=== PATIENT | female | born 1990 | race African-American/Black ===

== ENCOUNTER 2020-09-16 06:46 | Emergency (ER) | payer MEDICAID, OTHER ==
[~2020-09-16] VITALS: Ht 170.2 cm; Wt 145.0 kg
[2020-09-16 06:49] VITALS: BP 145/79
[2020-09-16 07:20] LABS: CLARITY URINE CLEAR (CLEAR); COLOR URINE YELLOW (YELLOW); KETONES URINE TRACE (NEGATIVE); LEUKOCYTE ESTERASE URINE TRACE (NEGATIVE); NITRITE URINE NEGATIVE (NEGATIVE); OCCULT BLOOD URINE TRACE (NEGATIVE); PROTEIN URINE TRACE (NEGATIVE); SPECIFIC GRAVITY URINE 1.031 (1.005-1.030)
[2020-09-16] MEDS ORDERED: DIPH25CA83 PO (07:46)
== END 2020-09-16 07:57 | disposition home or self-care (01) ==
LOC: ER 07:12
DX: Z00.00 Encounter for general adult medical examination without abnormal findings (principal); R30.0 Dysuria; E11.9 Type 2 diabetes mellitus without complications; Z91.010 Allergy to peanuts; Z91.018 Allergy to other foods
CPT/HCPCS: 81003; 81025; 82962; 99283

== ENCOUNTER 2021-03-25 13:06 | Inpatient (IN) | payer MEDICAID ==
[~2021-03-25] VITALS: Ht 170.2 cm; Wt 128.4 kg
[~2021-03-25 13:06] MED LIST: DIPH25CA83 PO
[2021-03-25 15:28] LABS: CLARITY URINE CLOUDY (CLEAR); COLOR URINE YELLOW (YELLOW); KETONES URINE TRACE (NEGATIVE); LEUKOCYTE ESTERASE URINE 2+ (NEGATIVE); NITRITE URINE NEGATIVE (NEGATIVE); OCCULT BLOOD URINE 3+ (NEGATIVE); PH URINE 5.5 (4.5-8.0); PROTEIN URINE TRACE (NEGATIVE); SPECIFIC GRAVITY URINE 1.025 (1.005-1.030)
[2021-03-25 16:31] LABS: BASOPHILS % 0.2 % (0.0-2.0); EOSINOPHILS % 1.2 % (0.0-5.0); HEMATOCRIT. 34.5 % (36.0-48.0); HEMOGLOBIN. 11.9 g/dL (12.0-16.0); LYMPHOCYTES % 30.3 % (20.0-50.0); MEAN CORPUSCULAR HEMOGLOBIN 33.4 pg (28.0-32.0); MEAN CORPUSCULAR VOLUME 96.5 fL (81.0-99.0); MEAN PLATELET VOLUME 8.3 fl (7.4-10.4); MONOCYTES % 5.1 % (2.0-8.0); NEUTROPHILS % 63.2 % (40.0-76.0); PLATELET 271 x1000/uL (130-400); RED BLOOD CELL COUNT 3.57 mill/uL (4.2-5.4); RED CELL DISTRIBUTION WIDTH 13.5 % (11.6-14.6)
[2021-03-25 16:37] LABS: CHLORIDE 104 mEq/L (98-107)
[2021-03-25 17:00] LABS: B-HCG QUANTITATIVE 24249 mIU/mL (<3)
[2021-03-25] MEDS ORDERED: ROCURONIUM BROMIDE 10MG/ML VIAL 5ML IV ONE (19:23)
[2021-03-25] MEDS ORDERED: PROPOFOL 200MG/20ML VIAL IV ONE (19:24)
[2021-03-25] MEDS ORDERED: DEXAMETHASONE 4MG/ML 1ML VIAL ONE (19:25)
[2021-03-25] MEDS ORDERED: MEPERIDINE HCL/PF 25MG/ML CPJ IV PRN (20:15)
[2021-03-25] MEDS ORDERED: ONDANSETRON HCL 4MG/2ML INJ IV PRN (20:15)
[2021-03-25] MEDS ORDERED: HYDROMORPHONE HCL/PF 2MG/ML CPJ IV PRN (20:15)
[2021-03-25] MEDS ORDERED: LABETALOL 5MG/ML SYR 20 MG/4 ML SYRINGE IV PRN (20:15)
[2021-03-25] MEDS ORDERED: GLYCOPYRROLATE 0.2 MG/ML 2ML VIAL ONE (20:22)
[2021-03-25] MEDS ORDERED: KETOROLAC 30MG/ML VIAL IV NR (20:45)
[2021-03-25] MEDS ORDERED: KETOROLAC 30MG/ML VIAL ONE (20:49)
[2021-03-25] MEDS ORDERED: LORAZEPAM 2MG/ML CPJ IV PRN (21:00)
[2021-03-25] MEDS ORDERED: NALOXONE HCL 0.4MG/ML VIAL IV PRN (21:00)
[2021-03-26] MEDS: DIVALPROEX SODIUM 500MG DR TABLET PO SCH ×3 (00:02→19:07)
[2021-03-26 00:10] VITALS: BP 90/42
[2021-03-26] MEDS ORDERED: OLAN10TA3 MT (00:32)
[2021-03-26] MEDS ORDERED: DIVA500T3 MT (00:32)
[2021-03-26] MEDS: IBUPROFEN 800MG TABLET PO PRN ×2 (01:54→09:30)
[2021-03-26] MEDS: MORPHINE SULFATE 4 MG/ML CPJ (NOT FOR IM USE) IV PRN (02:09)
[2021-03-26] MEDS ORDERED: *PATIENT'S OWN MEDICATION STORAGE XX SCH (02:15)
[2021-03-26 04:00] VITALS: BP 116/74
[2021-03-26 06:28] LABS: HEMATOCRIT. 32.6 % (36.0-48.0); HEMOGLOBIN. 11.1 g/dL (12.0-16.0); MEAN CORPUSCULAR HEMOGLOBIN 32.8 pg (28.0-32.0); MEAN CORPUSCULAR VOLUME 96.6 fL (81.0-99.0); MEAN PLATELET VOLUME 8.3 fl (7.4-10.4); PLATELET 267 x1000/uL (130-400); RED BLOOD CELL COUNT 3.37 mill/uL (4.2-5.4); RED CELL DISTRIBUTION WIDTH 13.6 % (11.6-14.6)
[2021-03-26 06:37] LABS: CHLORIDE 105 mEq/L (98-107)
[2021-03-26 08:00] VITALS: BP 102/53
[2021-03-26] MEDS ORDERED: ALBUTEROL 6.7GM HFA INHALER ORI PRN (08:00)
[2021-03-26] MEDS ORDERED: ALBUTEROL (0.083%) 2.5MG/3ML NEB HHN PRN (08:15)
[2021-03-26] MEDS ORDERED: OLANZAPINE 10MG TABLET PO SCH (09:00)
[2021-03-26] MEDS: MORPHINE SULFATE 2 MG/ML CPJ (NOT FOR IM USE) IV PRN ×2 (09:02→17:22)
[2021-03-26] MEDS: OLANZAPINE 10MG TABLET PO SCH (09:02)
[2021-03-26] MEDS ORDERED: INFLUENZA VACCINE 05/PF 0.5 ML SYRINGE IM ONE (10:00)
[2021-03-26 12:00] VITALS: BP 115/54
[2021-03-26 12:54] LABS: PLATELET ESTIMATE NORMAL
[2021-03-26 16:00] VITALS: BP 120/54
[2021-03-26 20:00] VITALS: BP 105/39
[2021-03-27] VITALS: BP 91/47
[2021-03-27] MEDS: MORPHINE SULFATE 4 MG/ML CPJ (NOT FOR IM USE) IV PRN (03:39)
[2021-03-27 03:42] VITALS: BP 103/47
[2021-03-27] MEDS: DIVALPROEX SODIUM 500MG DR TABLET PO SCH (05:19)
[2021-03-27 08:00] VITALS: BP 106/60
[2021-03-27] MEDS: MORPHINE SULFATE 2 MG/ML CPJ (NOT FOR IM USE) IV PRN (08:54)
[2021-03-27] MEDS: OLANZAPINE 10MG TABLET PO SCH (08:55)
[2021-03-27 12:00] VITALS: BP 100/51
[2021-03-27] MEDS ORDERED: IBUP-2030 PO (12:31)
[2021-03-27] MEDS ORDERED: MULT-1146 MT (12:31)
[2021-03-27 13:25] VITALS: BP 100/51
== END 2021-03-27 13:49 | disposition home or self-care (01) | DRG 547 ==
LOC: ER 13:06 → 6WST 17:57 → EDBEDREQ 19:23 → ENRESERV 23:34 → CANBEDREQ 23:36 → ENRESERV 23:36
PROVIDERS: ADMIT Obstetrics & Gynecology; ATTEND Obstetrics & Gynecology
PROC: 0UB50ZZ Excision of Right Fallopian Tube, Open Approach (ICD-10-PCS; principal; 2021-03-25)
DX: O00.101 Right tubal pregnancy without intrauterine pregnancy (principal); E66.01 Morbid (severe) obesity due to excess calories; Z20.822 Contact with and (suspected) exposure to COVID-19; O99.331 Smoking (tobacco) complicating pregnancy, first trimester; O99.511 Diseases of the respiratory system complicating pregnancy, first trimester; J45.909 Unspecified asthma, uncomplicated; O99.211 Obesity complicating pregnancy, first trimester; F17.210 Nicotine dependence, cigarettes, uncomplicated; Z83.3 Family history of diabetes mellitus; Z91.010 Allergy to peanuts; Z91.014 Allergy to mammalian meats; Z91.018 Allergy to other foods
CPT/HCPCS: 36415; 76801; 80048; 80053; 81003; 84702; 85025; 87426; 88302; 90686; 99285; J1100; J1170; J1885; J2060; J2270; J2405; J2704; J3490

== ENCOUNTER 2021-07-10 19:03 | Emergency (ER) | payer MEDICAID, OTHER ==
[~2021-07-10] VITALS: Ht 175.3 cm; Wt 117.6 kg
[~2021-07-10 19:03] MED LIST changes: -DIPH25CA83 PO; +DIVA500T3 MT; +IBUP-2030 PO; +MULT-1146 MT; +OLAN10TA3 MT
[2021-07-11 04:36] LABS: BASOPHILS % 0.3 % (0.0-2.0); EOSINOPHILS % 0.8 % (0.0-5.0); HEMATOCRIT. 34.9 % (36.0-48.0); HEMOGLOBIN. 11.9 g/dL (12.0-16.0); LYMPHOCYTES % 30.2 % (20.0-50.0); MEAN CORPUSCULAR HEMOGLOBIN 32.4 pg (28.0-32.0); MEAN CORPUSCULAR VOLUME 94.8 fL (81.0-99.0); MEAN PLATELET VOLUME 7.7 fl (7.4-10.4); MONOCYTES % 7.5 % (2.0-8.0); NEUTROPHILS % 61.2 % (40.0-76.0); PLATELET 298 x1000/uL (130-400); RED BLOOD CELL COUNT 3.69 mill/uL (4.2-5.4); RED CELL DISTRIBUTION WIDTH 14.7 % (11.6-14.6)
[2021-07-11 04:42] LABS: CHLORIDE 109 mEq/L (98-107)
[2021-07-11 04:48] LABS: ETHANOL BLOOD < 10 mg/dL
[2021-07-11] MEDS: DIVALPROEX SODIUM 250MG DR TABLET PO SCH ×2 (10:26→21:45)
[2021-07-11] MEDS: OLANZAPINE 5MG TABLET PO SCH ×2 (10:26→17:44)
[2021-07-11 19:02] LABS: *AMPHETAMINES SCREEN URINE NEGATIVE (NEGATIVE); *BARBITURATES SCREEN URINE NEGATIVE (NEGATIVE); *BENZODIAZEPINES SCREEN URINE NEGATIVE (NEGATIVE); *COCAINE SCREEN URINE NEGATIVE (NEGATIVE); METHADONE URINE SCREEN NEGATIVE (NEGATIVE); OPIATES URINE SCREEN NEGATIVE (NEGATIVE)
[2021-07-11 19:03] LABS: PHENCYCLIDINE URINE SCREEN NEGATIVE (NEGATIVE)
[2021-07-11 19:04] LABS: CANNABINOID URINE SCREEN PRESUMTIVE POSITIVE (NEGATIVE)
[2021-07-11 19:28] LABS: CLARITY URINE CLEAR (CLEAR); COLOR URINE YELLOW (YELLOW); PROTEIN URINE NEGATIVE (NEGATIVE); SPECIFIC GRAVITY URINE 1.031 (1.005-1.030)
[2021-07-11 19:29] LABS: KETONES URINE TRACE (NEGATIVE); LEUKOCYTE ESTERASE URINE NEGATIVE (NEGATIVE); NITRITE URINE NEGATIVE (NEGATIVE); OCCULT BLOOD URINE NEGATIVE (NEGATIVE)
[2021-07-12] MEDS: DIVALPROEX SODIUM 250MG DR TABLET PO SCH ×2 (09:00→22:39)
[2021-07-12] MEDS: OLANZAPINE 5MG TABLET PO SCH ×2 (09:00→17:31)
[2021-07-12] MEDS ORDERED: HYDROCODONE/ACETAMINOPHEN 5/325MG TABLET PO ONE (14:30)
[2021-07-12] MEDS ORDERED: ACETAMINOPHEN 325MG TABLET PO STA (19:12)
[2021-07-12] MEDS ORDERED: LORAZEPAM 1MG TABLET PO ONE (21:45)
[2021-07-13 07:50] VITALS: BP 100/53
[2021-07-14 04:11] LABS: NEISSERIA GONORRHOEAE NAA Negative (Negative)
== END 2021-07-13 12:25 | disposition home or self-care (01) ==
LOC: ER 19:03
DX: R45.851 Suicidal ideations (principal); J45.909 Unspecified asthma, uncomplicated; F12.90 Cannabis use, unspecified, uncomplicated; F31.9 Bipolar disorder, unspecified; F20.9 Schizophrenia, unspecified; Z98.51 Tubal ligation status; Z91.010 Allergy to peanuts; Z91.013 Allergy to seafood; Z91.018 Allergy to other foods; Z20.822 Contact with and (suspected) exposure to COVID-19
CPT/HCPCS: 36415; 87426; 87635; 99283

== ENCOUNTER 2021-08-07 21:23 | Emergency (ER) | payer OTHER ==
[~2021-08-07] VITALS: Ht 175.3 cm; Wt 113.2 kg
[2021-08-07 21:26] VITALS: BP 121/69
[2021-08-07] MEDS ORDERED: OLAN10TA3 MT (22:07)
[2021-08-07] MEDS ORDERED: DIVA500T3 MT (22:07)
[2021-08-07] MEDS ORDERED: OLANZAPINE 10MG TABLET PO SCH (22:45)
== END 2021-08-07 22:57 | disposition home or self-care (01) ==
LOC: ER 21:23
DX: Z76.0 Encounter for issue of repeat prescription (principal); J45.909 Unspecified asthma, uncomplicated; F31.9 Bipolar disorder, unspecified; J44.9 Chronic obstructive pulmonary disease, unspecified; F20.9 Schizophrenia, unspecified; Z98.51 Tubal ligation status
CPT/HCPCS: 99282; 99283

== ENCOUNTER 2021-08-07 22:57 | Emergency (ER) | payer OTHER ==
[~2021-08-07] VITALS: Ht 175.3 cm; Wt 114.0 kg
[2021-08-08 00:34] LABS: BASOPHILS % 0.4 % (0.0-2.0); EOSINOPHILS % 0.6 % (0.0-5.0); HEMATOCRIT. 36.1 % (36.0-48.0); LYMPHOCYTES % 40.3 % (20.0-50.0); MEAN CORPUSCULAR HEMOGLOBIN 31.7 pg (28.0-32.0); MEAN CORPUSCULAR VOLUME 95.4 fL (81.0-99.0); MONOCYTES % 4.7 % (2.0-8.0); PLATELET 365 x1000/uL (130-400); RED BLOOD CELL COUNT 3.79 mill/uL (4.2-5.4); RED CELL DISTRIBUTION WIDTH 14.3 % (11.6-14.6)
[2021-08-08 00:40] LABS: CHLORIDE 108 mEq/L (98-107)
[2021-08-08 00:42] LABS: HCG SCREEN NEGATIVE
[2021-08-08 00:44] LABS: ETHANOL BLOOD < 10 mg/dL
[2021-08-08 02:24] VITALS: BP 140/66
[2021-08-09] MEDS ORDERED: CEPH500T MT (02:54)
== END 2021-08-08 02:26 | disposition home or self-care (01) ==
LOC: ER 22:57
DX: F20.9 Schizophrenia, unspecified (principal); R45.851 Suicidal ideations; F41.9 Anxiety disorder, unspecified; J44.9 Chronic obstructive pulmonary disease, unspecified; Z20.822 Contact with and (suspected) exposure to COVID-19; Z98.51 Tubal ligation status; Z91.010 Allergy to peanuts; Z91.013 Allergy to seafood; Z91.018 Allergy to other foods
CPT/HCPCS: 36415; 80053; 80307; 80320; 80329; 84703; 85025; 87426; 99283; G0480

== ENCOUNTER 2021-08-09 00:05 | Emergency (ER) | payer OTHER ==
[~2021-08-09] VITALS: Ht 175.3 cm; Wt 114.0 kg
[2021-08-09] MEDS ORDERED: ACETAMINOPHEN 325MG TABLET PO PRN (00:45)
[2021-08-09 00:56] LABS: BASOPHILS % 0.2 % (0.0-2.0); EOSINOPHILS % 0.3 % (0.0-5.0); HEMATOCRIT. 33.2 % (36.0-48.0); HEMOGLOBIN. 11.4 g/dL (12.0-16.0); LYMPHOCYTES % 31.3 % (20.0-50.0); MEAN CORPUSCULAR HEMOGLOBIN 32.7 pg (28.0-32.0); MEAN CORPUSCULAR VOLUME 94.8 fL (81.0-99.0); MEAN PLATELET VOLUME 7.7 fl (7.4-10.4); MONOCYTES % 4.9 % (2.0-8.0); NEUTROPHILS % 63.3 % (40.0-76.0); PLATELET 337 x1000/uL (130-400); RED CELL DISTRIBUTION WIDTH 14.4 % (11.6-14.6)
[2021-08-09 01:04] LABS: CHLORIDE 106 mEq/L (98-107)
[2021-08-09 01:14] LABS: B-HCG QUANTITATIVE < 1 mIU/mL (<3)
[2021-08-09 01:54] LABS: CLARITY URINE CLOUDY (CLEAR); COLOR URINE DARK YELLOW (YELLOW); KETONES URINE TRACE (NEGATIVE); LEUKOCYTE ESTERASE URINE 1+ (NEGATIVE); NITRITE URINE NEGATIVE (NEGATIVE); OCCULT BLOOD URINE 2+ (NEGATIVE); PH URINE 5.5 (4.5-8.0); PROTEIN URINE 2+ (NEGATIVE); SPECIFIC GRAVITY URINE 1.032 (1.005-1.030)
[2021-08-09] MEDS ORDERED: CEPH500T MT (02:54)
[2021-08-09 05:00] VITALS: BP 112/86
== END 2021-08-09 05:05 | disposition home or self-care (01) ==
LOC: ER 00:05
DX: R51.9 Headache, unspecified (principal); J45.909 Unspecified asthma, uncomplicated; Z91.018 Allergy to other foods; Z91.010 Allergy to peanuts; Z79.899 Other long term (current) drug therapy; Z86.59 Personal history of other mental and behavioral disorders
CPT/HCPCS: 36415; 70486; 76830; 76856; 80053; 81003; 81025; 84702; 85025; 86850; 86900; 99284

== ENCOUNTER 2021-08-13 19:01 | Emergency (ER) | payer OTHER ==
[~2021-08-13] VITALS: Ht 175.3 cm; Wt 113.0 kg
[~2021-08-13 19:01] MED LIST changes: +CEPH500T MT
[2021-08-13 19:06] VITALS: BP 133/74
[2021-08-13] MEDS ORDERED: TOPUD PO (19:36)
[2021-08-13] MEDS ORDERED: ACETAMINOPHEN 325MG TABLET PO ONE (19:45)
== END 2021-08-13 20:43 | disposition home or self-care (01) ==
LOC: ER 19:01
DX: L84 Corns and callosities (principal); E11.9 Type 2 diabetes mellitus without complications; J45.909 Unspecified asthma, uncomplicated; F20.9 Schizophrenia, unspecified; Z91.010 Allergy to peanuts; Z91.013 Allergy to seafood; Z91.014 Allergy to mammalian meats; Z91.018 Allergy to other foods
CPT/HCPCS: 99282

== ENCOUNTER 2021-08-14 02:15 | Emergency (ER) | payer OTHER ==
[~2021-08-14] VITALS: Ht 175.3 cm; Wt 113.0 kg
[~2021-08-14 02:15] MED LIST changes: +TOPUD PO
[2021-08-14 03:58] LABS: CHLORIDE 105 mEq/L (98-107)
[2021-08-14 04:02] LABS: ETHANOL BLOOD < 10 mg/dL
[2021-08-14 04:04] LABS: BASOPHILS % 0.1 % (0.0-2.0); EOSINOPHILS % 1.5 % (0.0-5.0); HEMATOCRIT. 38.7 % (36.0-48.0); HEMOGLOBIN. 12.9 g/dL (12.0-16.0); LYMPHOCYTES % 48.8 % (20.0-50.0); MEAN CORPUSCULAR VOLUME 96.1 fL (81.0-99.0); MONOCYTES % 5.9 % (2.0-8.0); NEUTROPHILS % 43.7 % (40.0-76.0); PLATELET 329 x1000/uL (130-400); RED BLOOD CELL COUNT 4.03 mill/uL (4.2-5.4)
[2021-08-14 05:21] LABS: HCG SCREEN NEGATIVE
[2021-08-14 12:22] LABS: CLARITY URINE CLEAR (CLEAR); COLOR URINE DARK YELLOW (YELLOW); KETONES URINE NEGATIVE (NEGATIVE); LEUKOCYTE ESTERASE URINE NEGATIVE (NEGATIVE); NITRITE URINE NEGATIVE (NEGATIVE); OCCULT BLOOD URINE NEGATIVE (NEGATIVE); PROTEIN URINE TRACE (NEGATIVE); SPECIFIC GRAVITY URINE 1.036 (1.005-1.030)
[2021-08-14 12:32] LABS: *BARBITURATES SCREEN URINE NEGATIVE (NEGATIVE); *BENZODIAZEPINES SCREEN URINE NEGATIVE (NEGATIVE)
[2021-08-14 12:33] LABS: *COCAINE SCREEN URINE NEGATIVE (NEGATIVE); METHADONE URINE SCREEN NEGATIVE (NEGATIVE); OPIATES URINE SCREEN NEGATIVE (NEGATIVE); PHENCYCLIDINE URINE SCREEN NEGATIVE (NEGATIVE)
[2021-08-14 12:57] LABS: *AMPHETAMINES SCREEN URINE PRESUMTIVE POSITIVE (NEGATIVE); CANNABINOID URINE SCREEN PRESUMTIVE POSITIVE (NEGATIVE)
[2021-08-14] MEDS: OLANZAPINE 10MG TABLET PO SCH (21:20)
[2021-08-14] MEDS: DIVALPROEX SODIUM 500MG DR TABLET PO SCH (22:40)
[2021-08-15] MEDS: DIVALPROEX SODIUM 500MG DR TABLET PO SCH ×2 (09:58→20:10)
[2021-08-15] MEDS: OLANZAPINE 10MG TABLET PO SCH (20:10)
[2021-08-16] MEDS: DIVALPROEX SODIUM 500MG DR TABLET PO SCH ×2 (09:03→20:57)
[2021-08-16] MEDS: OLANZAPINE 10MG TABLET PO SCH (21:31)
[2021-08-17] MEDS ORDERED: DIVALPROEX SODIUM 500MG DR TABLET PO SCH (09:30)
[2021-08-17 10:45] VITALS: BP 125/81
[2021-08-17] MEDS ORDERED: OLANZAPINE 10MG TABLET PO SCH (21:00)
== END 2021-08-17 10:49 | disposition home or self-care (01) ==
LOC: ER 02:15
DX: R44.0 Auditory hallucinations (principal); R45.851 Suicidal ideations; F31.9 Bipolar disorder, unspecified; F19.10 Other psychoactive substance abuse, uncomplicated; Z20.822 Contact with and (suspected) exposure to COVID-19
CPT/HCPCS: 36415; 80053; 80305; 80307; 80320; 80329; 81003; 84703; 85025; 99285; C9803; U0003; U0005; G0480

== ENCOUNTER 2021-09-01 19:14 | Emergency (ER) | payer OTHER | END 2021-09-01 19:50 | disposition left against medical advice (07) | LOC: ER 19:14 | DX: Z53.21 Procedure and treatment not carried out due to patient leaving prior to being seen by health care provider (principal) ==

== ENCOUNTER 2022-11-29 19:52 | Emergency (ER) | payer OTHER | END 2022-11-29 20:34 | disposition left against medical advice (07) | LOC: ER 19:52 | DX: Z53.21 Procedure and treatment not carried out due to patient leaving prior to being seen by health care provider (principal) | CPT/HCPCS: 99281 ==

== ENCOUNTER 2022-11-30 23:45 | Emergency (ER) | payer MEDICAID, OTHER ==
[~2022-11-30] VITALS: Ht 172.7 cm; Wt 120.0 kg
[2022-12-01 00:44] VITALS: BP 105/52
[2022-12-01 01:13] LABS: BASOPHILS % 0.2 % (0.0-2.0); EOSINOPHILS % 2.8 % (0.0-5.0); HEMATOCRIT. 32.2 % (36.0-48.0); HEMOGLOBIN. 10.9 g/dL (12.0-16.0); LYMPHOCYTES % 38.6 % (20.0-50.0); MEAN CORPUSCULAR HEMOGLOBIN 33.3 pg (28.0-32.0); MEAN PLATELET VOLUME 7.5 fl (7.4-10.4); MONOCYTES % 4.8 % (2.0-8.0); NEUTROPHILS % 53.6 % (40.0-76.0); PLATELET 304 x1000/uL (130-400); RED BLOOD CELL COUNT 3.29 mill/uL (4.2-5.4); RED CELL DISTRIBUTION WIDTH 14.1 % (11.6-14.6)
[2022-12-01 01:23] LABS: CHLORIDE 110 mEq/L (98-107)
[2022-12-01 06:44] LABS: HCG SCREEN NEGATIVE
== END 2022-12-01 06:21 | disposition left against medical advice (07) ==
LOC: ER 12-01 00:31
DX: Z53.21 Procedure and treatment not carried out due to patient leaving prior to being seen by health care provider (principal)
CPT/HCPCS: 36415; 80053; 84703; 85025; 99281

== ENCOUNTER 2023-01-06 04:45 | Emergency (ER) | payer MEDICAID ==
[2023-01-06 05:01] VITALS: PULSE 104
== END 2023-01-06 06:00 | disposition left against medical advice (07) ==
LOC: ER 04:45
DX: Z53.21 Procedure and treatment not carried out due to patient leaving prior to being seen by health care provider (principal)

== ENCOUNTER 2023-01-17 22:18 | Emergency (ER) | payer MEDICAID, OTHER ==
[~2023-01-17] VITALS: Ht 175.3 cm; Wt 113.0 kg
[2023-01-17 23:28] VITALS: BP 114/75; PULSE 109; RESP 16; TEMP 98.2; O2SAT 99
[2023-01-18 01:53] LABS: CLARITY URINE CLOUDY (CLEAR); COLOR URINE YELLOW (YELLOW); KETONES URINE TRACE (NEGATIVE); LEUKOCYTE ESTERASE URINE 2+ (NEGATIVE); NITRITE URINE NEGATIVE (NEGATIVE); OCCULT BLOOD URINE 1+ (NEGATIVE); PH URINE 5.5 (4.5-8.0); PROTEIN URINE TRACE (NEGATIVE); SPECIFIC GRAVITY URINE 1.029 (1.005-1.030)
[2023-01-18 03:18] LABS: BASOPHILS % 0.1 % (0.0-2.0); EOSINOPHILS % 1.6 % (0.0-5.0); HEMATOCRIT. 33.2 % (36.0-48.0); HEMOGLOBIN. 11.3 g/dL (12.0-16.0); LYMPHOCYTES % 33.6 % (20.0-50.0); MEAN CORPUSCULAR HEMOGLOBIN 32.4 pg (28.0-32.0); MEAN CORPUSCULAR VOLUME 95.2 fL (81.0-99.0); MEAN PLATELET VOLUME 7.5 fl (7.4-10.4); MONOCYTES % 9.8 % (2.0-8.0); NEUTROPHILS % 54.9 % (40.0-76.0); PLATELET 279 x1000/uL (130-400); RED BLOOD CELL COUNT 3.49 mill/uL (4.2-5.4); RED CELL DISTRIBUTION WIDTH 14.1 % (11.6-14.6)
[2023-01-18 03:23] LABS: CHLORIDE 104 mEq/L (98-107)
[2023-01-18 03:31] LABS: ETHANOL BLOOD < 10 mg/dL (-10)
[2023-01-18] MEDS ORDERED: LORAZEPAM 1MG TABLET PO ONE (03:45)
[2023-01-18] MEDS ORDERED: POTASSIUM CHLORIDE 20MEQ TABLET SR PO NR (04:15)
[2023-01-18 04:42] LABS: HCG SCREEN NEGATIVE
[2023-01-18 09:11] LABS: *BARBITURATES SCREEN URINE NEGATIVE (NEGATIVE); *BENZODIAZEPINES SCREEN URINE NEGATIVE (NEGATIVE); *COCAINE SCREEN URINE NEGATIVE (NEGATIVE); METHADONE URINE SCREEN NEGATIVE (NEGATIVE); OPIATES URINE SCREEN NEGATIVE (NEGATIVE); PHENCYCLIDINE URINE SCREEN NEGATIVE (NEGATIVE)
[2023-01-18 09:37] LABS: *AMPHETAMINES SCREEN URINE PRESUMTIVE POSITIVE (NEGATIVE)
[2023-01-18 09:38] LABS: CANNABINOID URINE SCREEN PRESUMTIVE POSITIVE (NEGATIVE)
== END 2023-01-18 10:29 | disposition home or self-care (01) ==
LOC: ER 22:18
DX: R45.851 Suicidal ideations (principal); J45.909 Unspecified asthma, uncomplicated; F15.10 Other stimulant abuse, uncomplicated; Z91.041 Radiographic dye allergy status; Z91.018 Allergy to other foods; Z91.010 Allergy to peanuts; Z91.013 Allergy to seafood; Z79.899 Other long term (current) drug therapy; Z98.890 Other specified postprocedural states
CPT/HCPCS: 36415; 80053; 80305; 80320; 81003; 81025; 84703; 85025; 99283; G0480

== ENCOUNTER 2023-01-29 17:16 | Emergency (ER) | payer MEDICAID ==
[~2023-01-29] VITALS: Ht 172.7 cm; Wt 100.0 kg
[2023-01-29 17:34] VITALS: BP 111/75; PULSE 107; RESP 20; TEMP 98.6; O2SAT 100
== END 2023-01-29 21:07 | disposition left against medical advice (07) ==
LOC: ER 17:16
DX: Z53.21 Procedure and treatment not carried out due to patient leaving prior to being seen by health care provider (principal)
CPT/HCPCS: 99281

== ENCOUNTER 2023-04-06 14:12 | Emergency (ER) | payer MEDICAID ==
[~2023-04-06] VITALS: Ht 175.3 cm; Wt 112.0 kg
[2023-04-06 14:16] VITALS: BP 144/113; RESP 16; TEMP 98.8; O2SAT 99
[2023-04-06 14:19] VITALS: PULSE 101
[2023-04-06] MEDS ORDERED: NYST15PO4 TP (15:04)
== END 2023-04-06 15:40 | disposition home or self-care (01) ==
LOC: ER 14:57
DX: B37.0 Candidal stomatitis (principal); F15.10 Other stimulant abuse, uncomplicated; J45.909 Unspecified asthma, uncomplicated; Z91.014 Allergy to mammalian meats; Z91.018 Allergy to other foods; Z91.010 Allergy to peanuts; Z91.013 Allergy to seafood; Z79.899 Other long term (current) drug therapy
CPT/HCPCS: 99281

== ENCOUNTER 2023-09-13 06:48 | Emergency (ER) | payer MEDICAID ==
[~2023-09-13] VITALS: Ht 170.2 cm; Wt 84.0 kg
[~2023-09-13 06:48] MED LIST changes: +NYST15PO4 TP
[2023-09-13 06:53] VITALS: O2SAT 99
[2023-09-13] MEDS: SODIUM CHLORIDE 0.9% 1,000 ML IV ONE (07:32)
[2023-09-13 08:00] LABS: BASOPHILS % 0.2 % (0.0-2.0); DIFFERENTIAL COMMENT 0; EOSINOPHILS % 1.1 % (0.0-5.0); HEMATOCRIT. 26.4 % (36.0-48.0); HEMOGLOBIN. 8.5 g/dL (12.0-16.0); LYMPHOCYTES % 25.2 % (20.0-50.0); MEAN CORPUSCULAR HEMOGLOBIN 32.7 pg (28.0-32.0); MEAN CORPUSCULAR HGB CONC 32.2 g/dL (31.0-37.0); MEAN CORPUSCULAR VOLUME 101.7 fL (81.0-99.0); MEAN PLATELET VOLUME 7.2 fl (7.4-10.4); MONOCYTES % 6.9 % (2.0-8.0); NEUTROPHILS % 66.6 % (40.0-76.0); PLATELET 193 x1000/uL (130-400); RED CELL DISTRIBUTION WIDTH 14.6 % (11.6-14.6); WHITE BLOOD COUNT 5.9 x1000/uL (4.5-11.0)
[2023-09-13 08:20] LABS: ALANINE AMINOTRANSFERASE 16 IU/L (10-49); ALBUMIN 4.1 g/dL (3.2-4.8); ASPARTATE AMINOTRANSFERASE 27 IU/L (<34); BILIRUBIN TOTAL 0.3 mg/dL (0.1-1.0); CALCIUM 8.3 mg/dL (8.7-10.4); CARBON DIOXIDE 22 mEq/L (21-32); CHLORIDE 109 mEq/L (98-107); GLUCOSE 91 mg/dL (70-105); POTASSIUM 3.7 mEq/L (3.5-5.1); PROTEIN TOTAL 7.2 g/dL (6.0-8.3); SODIUM 138 mEq/L (136-145); UREA NITROGEN BLOOD 14 mg/dL (9-23)
[2023-09-13 08:22] LABS: TROPONIN I HIGH SENSITIVITY < 4 ng/L (3.0-34)
[2023-09-13 08:59] LABS: BETA HYDROXYBUTYRATE 1.3 mMol/L (0.0-0.3)
[2023-09-13 09:05] LABS: BG BASE EXCESS -2.6 mmol/L (-2.0-2.0); BG CARBOXYHEMOGLOBIN 4.6 % (0.5-1.5); BG DEOXYHEMOGLOBIN 2.6 % (0.0-5.0); BG FRACTION INSPIRED OXYGEN 21; BG HCO3 ACT 23.3 mmol/L (22.0-26.0); BG METHEMOGLOBIN 0.2 % (0.0-1.5); BG OXYGEN SATURATION 97.3 % (92.0-98.5); BG OXYHEMOGLOBIN 92.6 % (94.0-97.0); BG PCO2 44.4 mmHg (35.0-45.0); BG PH 7.337 (7.350-7.450); BG PO2 107.8 mmHg (75.0-100.0); BG SAMPLE SITE RIGHT BRACHIAL; BG TOTAL HEMOGLOBIN 11.1 g/dL (12.0-18.0); BG VENT MODE ROOM AIR
[2023-09-13] MEDS: LORAZEPAM 2MG/ML INJ IM ONE (10:15)
[2023-09-13] MEDS: OLANZAPINE 10 MG/VIAL IM ONE (10:15)
[2023-09-13 11:26] LABS: CLARITY URINE CLOUDY (CLEAR); COLOR URINE YELLOW (YELLOW); GLUCOSE URINE NEGATIVE (NEGATIVE); KETONES URINE TRACE (NEGATIVE); LEUKOCYTE ESTERASE URINE NEGATIVE (NEGATIVE); NITRITE URINE NEGATIVE (NEGATIVE); OCCULT BLOOD URINE NEGATIVE (NEGATIVE); PH URINE 5.5 (4.5-8.0); PROTEIN URINE NEGATIVE (NEGATIVE); SPECIFIC GRAVITY URINE 1.027 (1.005-1.030)
[2023-09-13 11:50] LABS: SQUAMOUS EPITHELIAL CELL URINE 1+ /lpf (RARE/1+)
[2023-09-13 11:52] LABS: RBC URINE 0-2 /hpf (0-2)
[2023-09-13 11:54] LABS: BACTERIA URINE TRACE; MUCUS URINE 3+ /lpf (< = 2+)
[2023-09-13 13:10] LABS: *AMPHETAMINES SCREEN URINE PRESUMPTIVE POSITIVE (NEGATIVE); *BARBITURATES SCREEN URINE NEGATIVE (NEGATIVE); *BENZODIAZEPINES SCREEN URINE NEGATIVE (NEGATIVE); *COCAINE SCREEN URINE NEGATIVE (NEGATIVE); CANNABINOID URINE SCREEN PRESUMPTIVE POSITIVE (NEGATIVE); ECSTASY MDMA SCREEN URINE CONF.TEST INDICATED (NEGATIVE); METHADONE URINE SCREEN Neg (NEGATIVE); OPIATES URINE SCREEN NEGATIVE (NEGATIVE); PHENCYCLIDINE URINE SCREEN NEGATIVE (NEGATIVE)
[2023-09-13] MEDS: METFORMIN HCL 500MG TABLET PO SCH (17:00)
[2023-09-13 19:06] VITALS: BP 118/51; PULSE 81; RESP 16; TEMP 97.9
[2023-09-13] MEDS ORDERED: NITROFURANTOIN 100MG M/M CAPSULE PO SCH (21:00)
== END 2023-09-13 19:15 ==
LOC: ER 06:56
DX: R45.851 Suicidal ideations (principal); J45.909 Unspecified asthma, uncomplicated; F15.90 Other stimulant use, unspecified, uncomplicated; F19.90 Other psychoactive substance use, unspecified, uncomplicated; Z91.013 Allergy to seafood; Z91.010 Allergy to peanuts; Z88.8 Allergy status to other drugs, medicaments and biological substances; Z91.018 Allergy to other foods; Z90.89 Acquired absence of other organs; Z20.822 Contact with and (suspected) exposure to COVID-19
CPT/HCPCS: 80053; 80305; 81003; 81025; 82010; 80320; 82962; 83880; 85025; 84484; 36415; 71045; 82805; 82375; 93005; 96360; 96372; 99285; 87426; 36600; J3490; J2060; J7030; Z7610 ×2; G0480

== ENCOUNTER 2023-12-31 18:45 | Emergency (ER) | payer MEDICAID ==
[~2023-12-31] VITALS: Ht 162.6 cm; Wt 80.0 kg
[2023-12-31 19:47] LABS: BASOPHILS % 0.4 % (0.0-2.0); EOSINOPHILS % 1.6 % (0.0-5.0); HEMATOCRIT. 34.1 % (36.0-48.0); HEMOGLOBIN. 11.5 g/dL (12.0-16.0); LYMPHOCYTES % 28.3 % (20.0-50.0); MEAN CORPUSCULAR HEMOGLOBIN 33.2 pg (28.0-32.0); MEAN CORPUSCULAR HGB CONC 33.7 g/dL (31.0-37.0); MEAN CORPUSCULAR VOLUME 98.4 fL (81.0-99.0); MEAN PLATELET VOLUME 7.7 fl (7.4-10.4); MONOCYTES % 5.4 % (2.0-8.0); NEUTROPHILS % 64.3 % (40.0-76.0); PLATELET 250 x1000/uL (130-400); RED BLOOD CELL COUNT 3.47 mill/uL (4.2-5.4); RED CELL DISTRIBUTION WIDTH 13.6 % (11.6-14.6); WHITE BLOOD COUNT 7.6 x1000/uL (4.5-11.0)
[2023-12-31 19:54] LABS: CHLORIDE 110 mEq/L (98-107); POTASSIUM 3.8 mEq/L (3.5-5.1); SODIUM 142 mEq/L (136-145)
[2023-12-31 19:55] LABS: CARBON DIOXIDE 24 mEq/L (21-32)
[2023-12-31 20:00] LABS: GLUCOSE 87 mg/dL (70-105); UREA NITROGEN BLOOD 19 mg/dL (9-23)
[2023-12-31 20:02] LABS: ACETAMINOPHEN < 2 ug/mL (10-30)
[2023-12-31] MEDS: DIPHENHYDRAMINE 50MG/ML VIAL IM ONE (20:25)
[2023-12-31 20:26] VITALS: O2SAT 98
[2023-12-31] MEDS: MIDAZOLAM HCL 2 MG/2 ML VIAL IM ONE (20:26)
[2023-12-31] MEDS: HALOPERIDOL LACTATE 5MG/ML VIAL IM ONE (20:31)
[2023-12-31] MEDS: LORAZEPAM 1MG TABLET PO ONE (20:32)
[2023-12-31 20:33] LABS: ETHANOL BLOOD < 10 mg/dL (<10)
[2024-01-01 00:16] LABS: HCG SCREEN NEGATIVE
[2024-01-01] MEDS: ACETAMINOPHEN 500MG TABLET PO NR (07:30)
[2024-01-01 08:59] LABS: CLARITY URINE CLEAR (CLEAR); COLOR URINE YELLOW (YELLOW); GLUCOSE URINE NEGATIVE (NEGATIVE); KETONES URINE NEGATIVE (NEGATIVE); LEUKOCYTE ESTERASE URINE NEGATIVE (NEGATIVE); NITRITE URINE NEGATIVE (NEGATIVE); OCCULT BLOOD URINE NEGATIVE (NEGATIVE); PH URINE 5.5 (4.5-8.0); PROTEIN URINE NEGATIVE (NEGATIVE); SPECIFIC GRAVITY URINE 1.034 (1.005-1.030)
[2024-01-01 09:26] LABS: *AMPHETAMINES SCREEN URINE PRESUMPTIVE POSITIVE (NEGATIVE); *BARBITURATES SCREEN URINE NEGATIVE (NEGATIVE); *BENZODIAZEPINES SCREEN URINE PRESUMPTIVE POSITIVE (NEGATIVE); *COCAINE SCREEN URINE PRESUMPTIVE POSITIVE (NEGATIVE); CANNABINOID URINE SCREEN PRESUMPTIVE POSITIVE (NEGATIVE); ECSTASY MDMA SCREEN URINE CONF.TEST INDICATED (NEGATIVE); METHADONE URINE SCREEN NEGATIVE (NEGATIVE); OPIATES URINE SCREEN NEGATIVE (NEGATIVE); PHENCYCLIDINE URINE SCREEN NEGATIVE (NEGATIVE)
[2024-01-01] MEDS: HALOPERIDOL LACTATE 5MG/ML VIAL IM NR (10:00)
[2024-01-01] MEDS: LORAZEPAM 2MG/ML INJ IM NR (11:03)
[2024-01-01] MEDS: DIPHENHYDRAMINE 50MG/ML VIAL IV NR (11:03)
[2024-01-01] MEDS ORDERED: DIVALPROEX SODIUM 250MG ER TABLET PO SCH (21:00)
[2024-01-01] MEDS ORDERED: OLANZAPINE 10MG TABLET PO SCH (21:00)
[2024-01-01 21:01] VITALS: BP 104/40; PULSE 88; RESP 16; TEMP 98.5
[2024-01-02] MEDS ORDERED: OLANZAPINE 10MG TABLET PO SCH (21:00)
== END 2024-01-01 22:53 | disposition short-term general hospital (02) ==
LOC: ER 18:45
DX: R45.851 Suicidal ideations (principal); J45.909 Unspecified asthma, uncomplicated; E11.9 Type 2 diabetes mellitus without complications; Z91.041 Radiographic dye allergy status; Z91.010 Allergy to peanuts; Z91.013 Allergy to seafood; Z79.899 Other long term (current) drug therapy; Z86.59 Personal history of other mental and behavioral disorders
CPT/HCPCS: 80048; 80307; 80329; 80320; 84703; 85025; 36415; 96372 ×2; 99285; 80305; 81003; 96374; J1200 ×2; J2250; J1630; J2060; Z7610 ×2; G0480

== ENCOUNTER 2024-01-16 21:27 | Emergency (ER) | payer MEDICAID ==
[~2024-01-16] VITALS: Ht 172.7 cm; Wt 105.0 kg
[2024-01-16 21:33] VITALS: O2SAT 99
[2024-01-16] MEDS ORDERED: DIPHENHYDRAMINE 50MG CAPSULE PO ONE (23:45)
[2024-01-17 00:10] VITALS: BP 128/77; PULSE 82; RESP 17; TEMP 97.9
[2024-01-17] MEDS: DIPHENHYDRAMINE 25MG CAPSULE PO NR (00:11)
== END 2024-01-17 04:55 | disposition left against medical advice (07) ==
LOC: ER 21:27
DX: Z04.6 Encounter for general psychiatric examination, requested by authority (principal); E11.9 Type 2 diabetes mellitus without complications; J45.909 Unspecified asthma, uncomplicated; Z91.014 Allergy to mammalian meats; Z91.018 Allergy to other foods; Z91.010 Allergy to peanuts; Z91.013 Allergy to seafood; Z86.59 Personal history of other mental and behavioral disorders
CPT/HCPCS: 99282; Z7610; Q0163

== ENCOUNTER 2024-01-18 18:47 | Emergency (ER) | payer MEDICAID ==
[~2024-01-18] VITALS: Ht 172.7 cm; Wt 80.0 kg
[2024-01-18 18:49] VITALS: O2SAT 99
[2024-01-18] MEDS ORDERED: LORAZEPAM 0.5MG TABLET PO ONE (19:00)
[2024-01-18 20:07] LABS: BASOPHILS % 0.3 % (0.0-2.0); EOSINOPHILS % 0.8 % (0.0-5.0); HEMATOCRIT. 33.9 % (36.0-48.0); HEMOGLOBIN. 11.4 g/dL (12.0-16.0); LYMPHOCYTES % 24.3 % (20.0-50.0); MEAN CORPUSCULAR HGB CONC 33.7 g/dL (31.0-37.0); MEAN PLATELET VOLUME 7.7 fl (7.4-10.4); MONOCYTES % 7.4 % (2.0-8.0); NEUTROPHILS % 67.2 % (40.0-76.0); PLATELET 318 x1000/uL (130-400); RED BLOOD CELL COUNT 3.46 mill/uL (4.2-5.4); RED CELL DISTRIBUTION WIDTH 13.2 % (11.6-14.6); WHITE BLOOD COUNT 7.8 x1000/uL (4.5-11.0)
[2024-01-18 20:12] LABS: CHLORIDE 106 mEq/L (98-107); SODIUM 139 mEq/L (136-145)
[2024-01-18 20:13] LABS: CALCIUM 9.3 mg/dL (8.7-10.4); CARBON DIOXIDE 25 mEq/L (21-32)
[2024-01-18 20:18] LABS: CREATININE 1.2 mg/dL (0.6-1.0); GLUCOSE 102 mg/dL (70-105); UREA NITROGEN BLOOD 17 mg/dL (9-23)
[2024-01-18 20:20] LABS: ACETAMINOPHEN < 2 ug/mL (10-30)
[2024-01-18 20:27] LABS: ETHANOL BLOOD < 10 mg/dL (<10)
[2024-01-18 21:04] LABS: CLARITY URINE CLOUDY (CLEAR); COLOR URINE DARK YELLOW (YELLOW); GLUCOSE URINE NEGATIVE (NEGATIVE); KETONES URINE NEGATIVE (NEGATIVE); LEUKOCYTE ESTERASE URINE NEGATIVE (NEGATIVE); NITRITE URINE NEGATIVE (NEGATIVE); OCCULT BLOOD URINE NEGATIVE (NEGATIVE); PH URINE 5.5 (4.5-8.0); PROTEIN URINE 2+ (NEGATIVE); SPECIFIC GRAVITY URINE 1.034 (1.005-1.030)
[2024-01-18 21:14] LABS: *AMPHETAMINES SCREEN URINE PRESUMPTIVE POSITIVE (NEGATIVE); *BARBITURATES SCREEN URINE NEGATIVE (NEGATIVE); *BENZODIAZEPINES SCREEN URINE NEGATIVE (NEGATIVE); *COCAINE SCREEN URINE NEGATIVE (NEGATIVE); METHADONE URINE SCREEN NEGATIVE (NEGATIVE); OPIATES URINE SCREEN NEGATIVE (NEGATIVE)
[2024-01-18 21:15] LABS: CANNABINOID URINE SCREEN PRESUMPTIVE POSITIVE (NEGATIVE); ECSTASY MDMA SCREEN URINE CONF.TEST INDICATED (NEGATIVE); PHENCYCLIDINE URINE SCREEN NEGATIVE (NEGATIVE)
[2024-01-18] MEDS: LORAZEPAM 0.5MG TABLET PO NR (21:15)
[2024-01-18 21:29] LABS: BACTERIA URINE 2+; RBC URINE 0-2 /hpf (0-2); SQUAMOUS EPITHELIAL CELL URINE 2+ /lpf (RARE/1+); WBC URINE 0-2 /hpf (0-2)
[2024-01-19] MEDS: LORAZEPAM 2MG/ML INJ IM NR (07:45)
[2024-01-19] MEDS: HALOPERIDOL LACTATE 5MG/ML VIAL IM NR (08:41)
[2024-01-19] MEDS: DIPHENHYDRAMINE 50MG/ML VIAL IM ONE (08:56)
[2024-01-19] MEDS: QUETIAPINE FUMARATE 50MG TABLET PO SCH (18:31)
[2024-01-19] MEDS: TRAZODONE HCL 50MG TABLET PO STA (18:31)
[2024-01-19] MEDS: OLANZAPINE 5MG TABLET ODT PO SCH (21:00)
[2024-01-20] MEDS: DIPHENHYDRAMINE 50MG/ML VIAL IM ONE ×2 (08:45→15:15)
[2024-01-20] MEDS: HALOPERIDOL LACTATE 5MG/ML VIAL IM ONE ×2 (08:45→15:15)
[2024-01-20] MEDS: LORAZEPAM 2MG/ML INJ IM ONE ×3 (08:45→15:15)
[2024-01-20] MEDS: OLANZAPINE 10 MG/VIAL IM ONE (13:30)
[2024-01-20 13:49] VITALS: BP 112/62; PULSE 79; RESP 18; TEMP 36.78072; O2SAT 99
== END 2024-01-20 17:51 ==
LOC: ER 18:47
DX: R45.850 Homicidal ideations (principal); E11.9 Type 2 diabetes mellitus without complications; J45.909 Unspecified asthma, uncomplicated; Z20.822 Contact with and (suspected) exposure to COVID-19; Z91.014 Allergy to mammalian meats; Z91.018 Allergy to other foods; Z91.010 Allergy to peanuts; Z91.013 Allergy to seafood; Z86.59 Personal history of other mental and behavioral disorders
CPT/HCPCS: 80305; 80048; 81003; 80307; 80329; 80320; 85025; 36415; 99291; 87426; 96372 ×2; Z7610 ×2; J1200 ×2; J2060 ×2; J3490; J1630; 99285; G0480

== ENCOUNTER 2024-02-01 01:38 | Emergency (ER) | payer MEDICAID ==
[~2024-02-01] VITALS: Ht 170.2 cm; Wt 73.0 kg
[2024-02-01 01:42] VITALS: O2SAT 100
[2024-02-01] MEDS: OLANZAPINE 10 MG/VIAL IM STA (02:10)
[2024-02-01 02:47] LABS: BASOPHILS % 0.2 % (0.0-2.0); EOSINOPHILS % 0.4 % (0.0-5.0); HEMATOCRIT. 32.7 % (36.0-48.0); HEMOGLOBIN. 11.2 g/dL (12.0-16.0); LYMPHOCYTES % 32.2 % (20.0-50.0); MEAN CORPUSCULAR HEMOGLOBIN 33.2 pg (28.0-32.0); MEAN CORPUSCULAR HGB CONC 34.2 g/dL (31.0-37.0); MEAN CORPUSCULAR VOLUME 97.3 fL (81.0-99.0); MEAN PLATELET VOLUME 8.1 fl (7.4-10.4); MONOCYTES % 6.7 % (2.0-8.0); NEUTROPHILS % 60.5 % (40.0-76.0); PLATELET 247 x1000/uL (130-400); RED BLOOD CELL COUNT 3.36 mill/uL (4.2-5.4); RED CELL DISTRIBUTION WIDTH 13.4 % (11.6-14.6); WHITE BLOOD COUNT 6.3 x1000/uL (4.5-11.0)
[2024-02-01 02:55] LABS: CHLORIDE 106 mEq/L (98-107); POTASSIUM 3.3 mEq/L (3.5-5.1); SODIUM 137 mEq/L (136-145)
[2024-02-01 02:56] LABS: CARBON DIOXIDE 27 mEq/L (21-32)
[2024-02-01 02:57] LABS: CALCIUM 9.5 mg/dL (8.7-10.4)
[2024-02-01 03:01] LABS: CREATININE 1.1 mg/dL (0.6-1.0); GLUCOSE 100 mg/dL (70-105); UREA NITROGEN BLOOD 12 mg/dL (9-23)
[2024-02-01 03:02] LABS: HCG SCREEN NEGATIVE
[2024-02-01 03:03] LABS: ACETAMINOPHEN < 2 ug/mL (10-30)
[2024-02-01 03:13] LABS: ETHANOL BLOOD < 10 mg/dL (<10)
[2024-02-01 03:17] LABS: CLARITY URINE CLOUDY (CLEAR); COLOR URINE DARK YELLOW (YELLOW); GLUCOSE URINE NEGATIVE (NEGATIVE); KETONES URINE TRACE (NEGATIVE); LEUKOCYTE ESTERASE URINE 1+ (NEGATIVE); NITRITE URINE NEGATIVE (NEGATIVE); OCCULT BLOOD URINE NEGATIVE (NEGATIVE); PH URINE 5.5 (4.5-8.0); PROTEIN URINE 1+ (NEGATIVE); SPECIFIC GRAVITY URINE 1.031 (1.005-1.030)
[2024-02-01 04:13] LABS: *AMPHETAMINES SCREEN URINE PRESUMPTIVE POSITIVE (NEGATIVE); *BARBITURATES SCREEN URINE NEGATIVE (NEGATIVE); *BENZODIAZEPINES SCREEN URINE NEGATIVE (NEGATIVE); *COCAINE SCREEN URINE NEGATIVE (NEGATIVE)
[2024-02-01 04:14] LABS: CANNABINOID URINE SCREEN PRESUMPTIVE POSITIVE (NEGATIVE); ECSTASY MDMA SCREEN URINE CONF.TEST INDICATED (NEGATIVE); METHADONE URINE SCREEN NEGATIVE (NEGATIVE); OPIATES URINE SCREEN NEGATIVE (NEGATIVE); PHENCYCLIDINE URINE SCREEN PRESUMTIVE POSITIVE (NEGATIVE)
[2024-02-01 05:03] LABS: BACTERIA URINE 2+; RBC URINE 0-2 /hpf (0-2); SQUAMOUS EPITHELIAL CELL URINE 2+ /lpf (RARE/1+)
[2024-02-01] MEDS: CEPHALEXIN 250MG CAPSULE PO ONE (06:30)
[2024-02-01 12:03] VITALS: BP 135/15; PULSE 80; RESP 18; TEMP 98
== END 2024-02-01 12:52 | disposition home or self-care (01) ==
LOC: ER 01:51
DX: R45.851 Suicidal ideations (principal); N39.0 Urinary tract infection, site not specified; F41.9 Anxiety disorder, unspecified; J45.909 Unspecified asthma, uncomplicated; F12.90 Cannabis use, unspecified, uncomplicated; F15.90 Other stimulant use, unspecified, uncomplicated; F19.90 Other psychoactive substance use, unspecified, uncomplicated; Z91.013 Allergy to seafood; Z88.8 Allergy status to other drugs, medicaments and biological substances; Z91.018 Allergy to other foods; Z20.822 Contact with and (suspected) exposure to COVID-19
CPT/HCPCS: 80305; 80048; 81003; 80307; 80329; 80320; 84703; 85025; 36415; 93005; 96372; 99285; 87426; J3490; Z7610 ×2; A4565; G0480

== ENCOUNTER 2024-03-03 11:45 | Emergency (ER) | payer MEDICAID ==
[2024-03-03 13:07] LABS: BASOPHILS % 0.3 % (0.0-2.0); HEMATOCRIT. 30.5 % (36.0-48.0); HEMOGLOBIN. 10.2 g/dL (12.0-16.0); LYMPHOCYTES % 36.6 % (20.0-50.0); MEAN CORPUSCULAR HEMOGLOBIN 32.9 pg (28.0-32.0); MEAN CORPUSCULAR HGB CONC 33.4 g/dL (31.0-37.0); MEAN CORPUSCULAR VOLUME 98.5 fL (81.0-99.0); MEAN PLATELET VOLUME 7.9 fl (7.4-10.4); MONOCYTES % 6.9 % (2.0-8.0); NEUTROPHILS % 55.2 % (40.0-76.0); PLATELET 219 x1000/uL (130-400); RED CELL DISTRIBUTION WIDTH 13.4 % (11.6-14.6); WHITE BLOOD COUNT 6.2 x1000/uL (4.5-11.0)
[2024-03-03 13:14] LABS: CHLORIDE 108 mEq/L (98-107); POTASSIUM 3.2 mEq/L (3.5-5.1); SODIUM 138 mEq/L (136-145)
[2024-03-03 13:15] LABS: CALCIUM 8.9 mg/dL (8.7-10.4); CARBON DIOXIDE 24 mEq/L (21-32)
[2024-03-03 13:20] LABS: CREATININE 0.9 mg/dL (0.6-1.0); GLUCOSE 71 mg/dL (70-105); UREA NITROGEN BLOOD 16 mg/dL (9-23)
[2024-03-03 13:22] LABS: ACETAMINOPHEN < 2 ug/mL (10-30)
[2024-03-03 13:27] LABS: HCG SCREEN NEGATIVE
[2024-03-03 13:39] LABS: ETHANOL BLOOD < 10 mg/dL (<10)
[2024-03-03] MEDS ORDERED: HALOPERIDOL LACTATE 5MG/ML VIAL IM ONE (14:00)
[2024-03-03] MEDS: DIPHENHYDRAMINE 50MG/ML VIAL IM ONE (14:22)
[2024-03-03] MEDS: OLANZAPINE 10 MG/VIAL IM ONE (14:22)
[2024-03-03] MEDS: LORAZEPAM 2MG/ML INJ IM ONE (14:22)
[2024-03-03] MEDS: POTASSIUM CHLORIDE 20MEQ TABLET SR PO ONE (15:05)
[2024-03-03 15:20] VITALS: O2SAT 99
[2024-03-03 23:49] LABS: CLARITY URINE CLEAR (CLEAR); COLOR URINE DARK YELLOW (YELLOW); GLUCOSE URINE NEGATIVE (NEGATIVE); KETONES URINE TRACE (NEGATIVE); LEUKOCYTE ESTERASE URINE NEGATIVE (NEGATIVE); NITRITE URINE NEGATIVE (NEGATIVE); OCCULT BLOOD URINE NEGATIVE (NEGATIVE); PH URINE 5.5 (4.5-8.0); PROTEIN URINE TRACE (NEGATIVE); SPECIFIC GRAVITY URINE 1.035 (1.005-1.030); UROBILINOGEN URINE 0.2 E.U./dL (0.2-1.0)
[2024-03-03 23:59] LABS: *AMPHETAMINES SCREEN URINE PRESUMPTIVE POSITIVE (NEGATIVE); *BARBITURATES SCREEN URINE NEGATIVE (NEGATIVE); *BENZODIAZEPINES SCREEN URINE NEGATIVE (NEGATIVE); *COCAINE SCREEN URINE NEGATIVE (NEGATIVE); CANNABINOID URINE SCREEN PRESUMPTIVE POSITIVE (NEGATIVE); METHADONE URINE SCREEN NEGATIVE (NEGATIVE); OPIATES URINE SCREEN NEGATIVE (NEGATIVE); PHENCYCLIDINE URINE SCREEN NEGATIVE (NEGATIVE)
[2024-03-04] LABS: ECSTASY MDMA SCREEN URINE CONF.TEST INDICATED (NEGATIVE)
[2024-03-04 01:51] LABS: BACTERIA URINE NONE SEEN; RBC URINE 0-2 /hpf (0-2); SQUAMOUS EPITHELIAL CELL URINE FEW /lpf (RARE/1+); WBC URINE 0-2 /hpf (0-2)
[2024-03-04] MEDS ORDERED: DIPHENHYDRAMINE 50MG/ML VIAL IM PRN (08:00)
[2024-03-04] MEDS: DIVALPROEX SODIUM 500MG DR TABLET PO SCH (09:00)
[2024-03-04] MEDS: OLANZAPINE 10 MG/VIAL IM ONE (09:06)
[2024-03-04 09:32] VITALS: BP 122/72; PULSE 81; RESP 18; TEMP 36.83628; O2SAT 99
[2024-03-04] MEDS ORDERED: OLANZAPINE 10MG TABLET PO SCH (21:00)
== END 2024-03-04 12:21 | disposition home or self-care (01) ==
LOC: ER 11:45
DX: R45.1 Restlessness and agitation (principal); R45.851 Suicidal ideations; F41.9 Anxiety disorder, unspecified; J45.909 Unspecified asthma, uncomplicated; E11.9 Type 2 diabetes mellitus without complications; F12.10 Cannabis abuse, uncomplicated; F15.10 Other stimulant abuse, uncomplicated; Z79.899 Other long term (current) drug therapy; Z20.822 Contact with and (suspected) exposure to COVID-19
CPT/HCPCS: 80305; 80048; 81003; 80307; 80329; 80320; 84703; 85025; 36415; 96372; 99291; 87426; J3490; J1200; J2060; Z7610 ×5; G0480

== ENCOUNTER 2024-03-23 02:53 | Emergency (ER) | payer MEDICAID ==
[~2024-03-23] VITALS: Ht 167.6 cm; Wt 91.0 kg
[2024-03-23 03:04] VITALS: O2SAT 100
[2024-03-23 03:13] VITALS: BP 127/77; PULSE 82; TEMP 36.78072; O2SAT 100
[2024-03-23 03:45] VITALS: RESP 17
== END 2024-03-23 03:45 | disposition home or self-care (01) ==
LOC: ER 03:00
DX: Z04.6 Encounter for general psychiatric examination, requested by authority (principal); F15.10 Other stimulant abuse, uncomplicated; J45.909 Unspecified asthma, uncomplicated; I10 Essential (primary) hypertension; F41.9 Anxiety disorder, unspecified; F32.A Depression, unspecified; F12.10 Cannabis abuse, uncomplicated; Z79.899 Other long term (current) drug therapy; Z59.01 Sheltered homelessness; Z90.89 Acquired absence of other organs; Z98.890 Other specified postprocedural states; Z91.014 Allergy to mammalian meats; Z91.018 Allergy to other foods; Z91.010 Allergy to peanuts; Z88.8 Allergy status to other drugs, medicaments and biological substances; Z91.013 Allergy to seafood
CPT/HCPCS: 99281; 99284

== ENCOUNTER 2024-03-29 19:36 | Emergency (ER) | payer MEDICAID ==
[~2024-03-29] VITALS: Ht 175.3 cm; Wt 96.0 kg
[2024-03-29 19:52] VITALS: O2SAT 100
[2024-03-29 20:46] LABS: BASOPHILS % 0.2 % (0.0-2.0); DIFFERENTIAL COMMENT 0; EOSINOPHILS % 1.5 % (0.0-5.0); HEMATOCRIT. 31.4 % (36.0-48.0); HEMOGLOBIN. 10.4 g/dL (12.0-16.0); LYMPHOCYTES % 37.6 % (20.0-50.0); MEAN CORPUSCULAR HEMOGLOBIN 33.2 pg (28.0-32.0); MEAN CORPUSCULAR HGB CONC 33.2 g/dL (31.0-37.0); MEAN CORPUSCULAR VOLUME 100.1 fL (81.0-99.0); MEAN PLATELET VOLUME 7.7 fl (7.4-10.4); MONOCYTES % 5.1 % (2.0-8.0); NEUTROPHILS % 55.6 % (40.0-76.0); PLATELET 282 x1000/uL (130-400); RED BLOOD CELL COUNT 3.14 mill/uL (4.2-5.4); WHITE BLOOD COUNT 6.4 x1000/uL (4.5-11.0)
[2024-03-29 20:51] LABS: CHLORIDE 110 mEq/L (98-107); POTASSIUM 4.2 mEq/L (3.5-5.1); SODIUM 140 mEq/L (136-145)
[2024-03-29 20:52] LABS: CALCIUM 8.9 mg/dL (8.7-10.4); CARBON DIOXIDE 26 mEq/L (21-32)
[2024-03-29 20:57] LABS: GLUCOSE 102 mg/dL (70-105); UREA NITROGEN BLOOD 12 mg/dL (9-23)
[2024-03-29 20:59] LABS: ACETAMINOPHEN < 2 ug/mL (10-30); ALANINE AMINOTRANSFERASE 14 IU/L (10-49); ALBUMIN 3.9 g/dL (3.2-4.8); ASPARTATE AMINOTRANSFERASE 28 IU/L (<34)
[2024-03-29 21:00] LABS: BILIRUBIN TOTAL 0.3 mg/dL (0.1-1.0); PROTEIN TOTAL 6.4 g/dL (6.0-8.3)
[2024-03-29 21:01] LABS: CLARITY URINE CLEAR (CLEAR); COLOR URINE YELLOW (YELLOW); GLUCOSE URINE NEGATIVE (NEGATIVE); KETONES URINE TRACE (NEGATIVE); LEUKOCYTE ESTERASE URINE NEGATIVE (NEGATIVE); NITRITE URINE NEGATIVE (NEGATIVE); OCCULT BLOOD URINE NEGATIVE (NEGATIVE); PH URINE 6.5 (4.5-8.0); PROTEIN URINE NEGATIVE (NEGATIVE); SPECIFIC GRAVITY URINE 1.027 (1.005-1.030)
[2024-03-29 21:06] LABS: BILIRUBIN DIRECT < 0.1 mg/dL (<=3.0); ETHANOL BLOOD < 10 mg/dL (<10)
[2024-03-29 21:07] LABS: HCG SCREEN NEGATIVE
[2024-03-29 21:12] LABS: *AMPHETAMINES SCREEN URINE PRESUMPTIVE POSITIVE (NEGATIVE); *BARBITURATES SCREEN URINE NEGATIVE (NEGATIVE); *BENZODIAZEPINES SCREEN URINE NEGATIVE (NEGATIVE); *COCAINE SCREEN URINE NEGATIVE (NEGATIVE)
[2024-03-29 21:13] LABS: CANNABINOID URINE SCREEN PRESUMPTIVE POSITIVE (NEGATIVE); ECSTASY MDMA SCREEN URINE CONF.TEST INDICATED (NEGATIVE); METHADONE URINE SCREEN NEGATIVE (NEGATIVE); OPIATES URINE SCREEN NEGATIVE (NEGATIVE); PHENCYCLIDINE URINE SCREEN NEGATIVE (NEGATIVE)
[2024-03-29] MEDS: DIPHENHYDRAMINE 25MG CAPSULE PO ONE (21:45)
[2024-03-30] MEDS: LORAZEPAM 2MG/ML INJ IM ONE (11:29)
[2024-03-30] MEDS: DIPHENHYDRAMINE 50MG/ML VIAL IM ONE (11:29)
[2024-03-30] MEDS: VALPROIC ACID 250MG CAPSULE PO ONE (18:01)
[2024-03-30 20:30] VITALS: BP 98/59; PULSE 77; RESP 17; TEMP 36.66960; O2SAT 99
[2024-03-31] MEDS ORDERED: OLANZAPINE 5MG TABLET ODT PO SCH (09:00)
== END 2024-03-30 20:45 ==
LOC: ER 19:36
DX: R45.851 Suicidal ideations (principal); F41.9 Anxiety disorder, unspecified; J45.909 Unspecified asthma, uncomplicated; I10 Essential (primary) hypertension; F20.9 Schizophrenia, unspecified; F12.90 Cannabis use, unspecified, uncomplicated; F15.90 Other stimulant use, unspecified, uncomplicated; Z98.890 Other specified postprocedural states; Z79.899 Other long term (current) drug therapy; Z91.013 Allergy to seafood; Z91.018 Allergy to other foods; Z20.822 Contact with and (suspected) exposure to COVID-19
CPT/HCPCS: 80076; 80305; 80048; 81003; 80307; 80329; 80320; 84703; 85025; 36415; 99285; 87426; 96372; Q0163; Z7610 ×2; J1200; J2060; G0480

== ENCOUNTER 2024-04-14 13:25 | Emergency (ER) | payer MEDICAID ==
[~2024-04-14] VITALS: Ht 165.1 cm; Wt 70.0 kg
[2024-04-14 13:35] VITALS: O2SAT 100
[2024-04-14] MEDS: KETOROLAC 30MG/ML VIAL IM ONE (14:48)
[2024-04-14] MEDS ORDERED: NAPR-420 MT (15:57)
[2024-04-14] MEDS ORDERED: HALOPERIDOL LACTATE 5MG/ML VIAL IM ONE ×2 (18:15)
[2024-04-14] MEDS ORDERED: HALOPERIDOL 5MG TABLET PO ONE (18:15)
[2024-04-14] MEDS: LORAZEPAM 2MG/ML INJ IM ONE (18:20)
[2024-04-14] MEDS: DIPHENHYDRAMINE 50MG/ML VIAL IM ONE (18:20)
[2024-04-14 19:32] LABS: *AMPHETAMINES SCREEN URINE PRESUMPTIVE POSITIVE (NEGATIVE)
[2024-04-14 19:33] LABS: *BARBITURATES SCREEN URINE NEGATIVE (NEGATIVE); *BENZODIAZEPINES SCREEN URINE NEGATIVE (NEGATIVE); *COCAINE SCREEN URINE PRESUMPTIVE POSITIVE (NEGATIVE); CANNABINOID URINE SCREEN PRESUMPTIVE POSITIVE (NEGATIVE); ECSTASY MDMA SCREEN URINE CONF.TEST INDICATED (NEGATIVE); METHADONE URINE SCREEN NEGATIVE (NEGATIVE); OPIATES URINE SCREEN NEGATIVE (NEGATIVE); PHENCYCLIDINE URINE SCREEN NEGATIVE (NEGATIVE)
[2024-04-14 20:24] LABS: BASOPHILS % 0.2 % (0.0-2.0); EOSINOPHILS % 2.8 % (0.0-5.0); HEMATOCRIT. 32.8 % (36.0-48.0); HEMOGLOBIN. 11.3 g/dL (12.0-16.0); LYMPHOCYTES % 48.6 % (20.0-50.0); MEAN CORPUSCULAR HEMOGLOBIN 34.1 pg (28.0-32.0); MEAN CORPUSCULAR HGB CONC 34.6 g/dL (31.0-37.0); MEAN CORPUSCULAR VOLUME 98.6 fL (81.0-99.0); MEAN PLATELET VOLUME 7.8 fl (7.4-10.4); MONOCYTES % 7.3 % (2.0-8.0); NEUTROPHILS % 41.1 % (40.0-76.0); PLATELET 242 x1000/uL (130-400); RED BLOOD CELL COUNT 3.33 mill/uL (4.2-5.4); RED CELL DISTRIBUTION WIDTH 13.5 % (11.6-14.6); WHITE BLOOD COUNT 5.6 x1000/uL (4.5-11.0)
[2024-04-14 20:29] LABS: CHLORIDE 107 mEq/L (98-107); POTASSIUM 3.4 mEq/L (3.5-5.1); SODIUM 138 mEq/L (136-145)
[2024-04-14 20:30] LABS: CALCIUM 9.1 mg/dL (8.7-10.4); CARBON DIOXIDE 25 mEq/L (21-32)
[2024-04-14 20:36] LABS: GLUCOSE 103 mg/dL (70-105); UREA NITROGEN BLOOD 17 mg/dL (9-23)
[2024-04-14 20:37] LABS: ETHANOL BLOOD < 10 mg/dL (<10)
[2024-04-14 20:39] LABS: CLARITY URINE CLOUDY (CLEAR); COLOR URINE DARK YELLOW (YELLOW); GLUCOSE URINE NEGATIVE (NEGATIVE); KETONES URINE TRACE (NEGATIVE); LEUKOCYTE ESTERASE URINE NEGATIVE (NEGATIVE); NITRITE URINE NEGATIVE (NEGATIVE); OCCULT BLOOD URINE 3+ (NEGATIVE); PH URINE 5.5 (4.5-8.0); PROTEIN URINE 2+ (NEGATIVE); SPECIFIC GRAVITY URINE 1.039 (1.005-1.030)
[2024-04-14 21:09] LABS: HCG SCREEN NEGATIVE
[2024-04-14 21:58] LABS: BACTERIA URINE 2+; SQUAMOUS EPITHELIAL CELL URINE 2+ /lpf (RARE/1+)
[2024-04-14 21:59] LABS: MUCUS URINE 2+ /lpf (< = 2+); WBC URINE 0-2 /hpf (0-2)
[2024-04-15 14:00] VITALS: BP 133/56; PULSE 79; RESP 18; TEMP 36.66960; O2SAT 98
== END 2024-04-15 14:38 | disposition home or self-care (01) ==
LOC: ER 13:25
DX: M79.604 Pain in right leg (principal); F41.9 Anxiety disorder, unspecified; J45.909 Unspecified asthma, uncomplicated; I10 Essential (primary) hypertension; F20.9 Schizophrenia, unspecified; F32.9 Major depressive disorder, single episode, unspecified; F12.10 Cannabis abuse, uncomplicated; F15.10 Other stimulant abuse, uncomplicated; Z79.899 Other long term (current) drug therapy; Z20.822 Contact with and (suspected) exposure to COVID-19
CPT/HCPCS: 80305; 80048; 81003; 81025; 80307; 80329; 80320; 84703; 85025; 36415; 73502; 96372; 99285; 87426; J1200; J1885; J2060; Z7610; G0480

== ENCOUNTER 2024-04-16 02:15 | Emergency (ER) | payer MEDICAID ==
[~2024-04-16] VITALS: Ht 167.6 cm; Wt 80.0 kg
[~2024-04-16 02:15] MED LIST changes: +NAPR-420 MT
[2024-04-16 02:17] VITALS: O2SAT 100
[2024-04-16 03:29] LABS: CLARITY URINE CLEAR (CLEAR); COLOR URINE YELLOW (YELLOW); GLUCOSE URINE NEGATIVE (NEGATIVE); KETONES URINE NEGATIVE (NEGATIVE); LEUKOCYTE ESTERASE URINE NEGATIVE (NEGATIVE); NITRITE URINE NEGATIVE (NEGATIVE); OCCULT BLOOD URINE NEGATIVE (NEGATIVE); PROTEIN URINE NEGATIVE (NEGATIVE); SPECIFIC GRAVITY URINE 1.031 (1.005-1.030)
[2024-04-16 03:32] LABS: BASOPHILS % 0.2 % (0.0-2.0); CHLORIDE 108 mEq/L (98-107); EOSINOPHILS % 0.6 % (0.0-5.0); HEMATOCRIT. 35.5 % (36.0-48.0); HEMOGLOBIN. 11.7 g/dL (12.0-16.0); MEAN CORPUSCULAR HEMOGLOBIN 32.5 pg (28.0-32.0); MEAN CORPUSCULAR VOLUME 98.4 fL (81.0-99.0); MONOCYTES % 4.6 % (2.0-8.0); NEUTROPHILS % 63.6 % (40.0-76.0); PLATELET 283 x1000/uL (130-400); POTASSIUM 3.5 mEq/L (3.5-5.1); RED BLOOD CELL COUNT 3.61 mill/uL (4.2-5.4); SODIUM 140 mEq/L (136-145)
[2024-04-16 03:33] LABS: CALCIUM 8.9 mg/dL (8.7-10.4); CARBON DIOXIDE 25 mEq/L (21-32)
[2024-04-16 03:38] LABS: CREATININE 0.8 mg/dL (0.6-1.0); GLUCOSE 105 mg/dL (70-105); UREA NITROGEN BLOOD 14 mg/dL (9-23)
[2024-04-16 03:40] LABS: ACETAMINOPHEN < 2 ug/mL (10-30); ALANINE AMINOTRANSFERASE 8 IU/L (10-49); ALBUMIN 4.2 g/dL (3.2-4.8); ASPARTATE AMINOTRANSFERASE 27 IU/L (<34); BILIRUBIN DIRECT 0.1 mg/dL (<=3.0)
[2024-04-16 03:41] LABS: BILIRUBIN TOTAL 0.3 mg/dL (0.1-1.0); PROTEIN TOTAL 6.9 g/dL (6.0-8.3)
[2024-04-16 03:46] LABS: ETHANOL BLOOD < 10 mg/dL (<10)
[2024-04-16 03:55] LABS: *AMPHETAMINES SCREEN URINE PRESUMPTIVE POSITIVE (NEGATIVE); *BENZODIAZEPINES SCREEN URINE NEGATIVE (NEGATIVE); *COCAINE SCREEN URINE PRESUMPTIVE POSITIVE (NEGATIVE); METHADONE URINE SCREEN NEGATIVE (NEGATIVE); OPIATES URINE SCREEN NEGATIVE (NEGATIVE)
[2024-04-16 03:56] LABS: CANNABINOID URINE SCREEN PRESUMPTIVE POSITIVE (NEGATIVE); ECSTASY MDMA SCREEN URINE CONF.TEST INDICATED (NEGATIVE); PHENCYCLIDINE URINE SCREEN PRESUMTIVE POSITIVE (NEGATIVE)
[2024-04-16 04:20] LABS: HCG SCREEN NEGATIVE
[2024-04-16 05:36] LABS: *BARBITURATES SCREEN URINE NEGATIVE (NEGATIVE)
[2024-04-16] MEDS: OLANZAPINE 5MG TABLET PO SCH (12:22)
[2024-04-16] MEDS ORDERED: DIVALPROEX SODIUM 250MG DR TABLET PO SCH (21:00)
[2024-04-16 21:49] VITALS: BP 117/76; PULSE 89; RESP 16; TEMP 36.66960; O2SAT 100
== END 2024-04-16 22:00 ==
LOC: ER 02:24
DX: F29 Unspecified psychosis not due to a substance or known physiological condition (principal); F60.0 Paranoid personality disorder; F19.10 Other psychoactive substance abuse, uncomplicated; I10 Essential (primary) hypertension; J45.909 Unspecified asthma, uncomplicated; F14.10 Cocaine abuse, uncomplicated; F12.10 Cannabis abuse, uncomplicated; F32.9 Major depressive disorder, single episode, unspecified; F15.10 Other stimulant abuse, uncomplicated; Z79.899 Other long term (current) drug therapy; Z20.822 Contact with and (suspected) exposure to COVID-19
CPT/HCPCS: 80076; 80305; 80048; 81003; 80307; 80329; 80320; 84703; 85025; 36415; 99285; 87426; Z7610; G0480

== ENCOUNTER 2024-04-30 07:45 | Emergency (ER) | payer MEDICAID, OTHER ==
[~2024-04-30] VITALS: Ht 175.3 cm; Wt 97.1 kg
[2024-04-30 08:10] VITALS: O2SAT 96
[2024-04-30 09:48] LABS: BASOPHILS % 0.3 % (0.0-2.0); EOSINOPHILS % 1.9 % (0.0-5.0); HEMATOCRIT. 34.4 % (36.0-48.0); HEMOGLOBIN. 11.2 g/dL (12.0-16.0); MEAN CORPUSCULAR HEMOGLOBIN 32.5 pg (28.0-32.0); MEAN CORPUSCULAR HGB CONC 32.7 g/dL (31.0-37.0); MEAN CORPUSCULAR VOLUME 99.3 fL (81.0-99.0); MONOCYTES % 7.4 % (2.0-8.0); NEUTROPHILS % 69.4 % (40.0-76.0); PLATELET 277 x1000/uL (130-400); RED BLOOD CELL COUNT 3.46 mill/uL (4.2-5.4); RED CELL DISTRIBUTION WIDTH 14.2 % (11.6-14.6)
[2024-04-30 09:57] LABS: CHLORIDE 104 mEq/L (98-107); POTASSIUM 3.3 mEq/L (3.5-5.1); SODIUM 137 mEq/L (136-145)
[2024-04-30 09:58] LABS: CARBON DIOXIDE 26 mEq/L (21-32)
[2024-04-30 09:59] LABS: CALCIUM 9.4 mg/dL (8.7-10.4); HCG SCREEN NEGATIVE
[2024-04-30 10:03] LABS: GLUCOSE 90 mg/dL (70-105); UREA NITROGEN BLOOD 11 mg/dL (9-23)
[2024-04-30 10:18] LABS: ETHANOL BLOOD < 10 mg/dL (<10)
[2024-05-01 00:47] LABS: CLARITY URINE CLEAR (CLEAR); COLOR URINE YELLOW (YELLOW); GLUCOSE URINE NEGATIVE (NEGATIVE); KETONES URINE NEGATIVE (NEGATIVE); LEUKOCYTE ESTERASE URINE TRACE (NEGATIVE); NITRITE URINE NEGATIVE (NEGATIVE); OCCULT BLOOD URINE NEGATIVE (NEGATIVE); PROTEIN URINE NEGATIVE (NEGATIVE); SPECIFIC GRAVITY URINE 1.024 (1.005-1.030)
[2024-05-01 01:06] LABS: *AMPHETAMINES SCREEN URINE PRESUMPTIVE POSITIVE (NEGATIVE); *BARBITURATES SCREEN URINE NEGATIVE (NEGATIVE); *BENZODIAZEPINES SCREEN URINE NEGATIVE (NEGATIVE); *COCAINE SCREEN URINE PRESUMPTIVE POSITIVE (NEGATIVE); CANNABINOID URINE SCREEN PRESUMPTIVE POSITIVE (NEGATIVE); ECSTASY MDMA SCREEN URINE NEGATIVE (NEGATIVE); METHADONE URINE SCREEN NEGATIVE (NEGATIVE); OPIATES URINE SCREEN NEGATIVE (NEGATIVE); PHENCYCLIDINE URINE SCREEN NEGATIVE (NEGATIVE)
[2024-05-01] MEDS ORDERED: TRAZODONE HCL 50MG TABLET PO ONE (01:15)
[2024-05-01 01:32] LABS: WBC URINE 0-2 /hpf (0-2)
[2024-05-01 01:33] LABS: BACTERIA URINE TRACE; RBC URINE NONE SEEN /hpf (0-2); SQUAMOUS EPITHELIAL CELL URINE FEW /lpf (RARE/1+)
[2024-05-01] MEDS: TRAZODONE HCL 50MG TABLET PO NR (01:38)
[2024-05-01 05:33] LABS: ACETAMINOPHEN < 2 ug/mL (10-30); ALANINE AMINOTRANSFERASE 15 IU/L (10-49); ALBUMIN 3.9 g/dL (3.2-4.8); ASPARTATE AMINOTRANSFERASE 19 IU/L (<34); BILIRUBIN DIRECT 0.1 mg/dL (<=3.0); BILIRUBIN TOTAL 0.4 mg/dL (0.1-1.0); PROTEIN TOTAL 6.3 g/dL (6.0-8.3)
[2024-05-01] MEDS: ACETAMINOPHEN 325MG TABLET PO ONE (13:09)
[2024-05-01 15:01] VITALS: BP 114/68; PULSE 78; RESP 16; TEMP 36.72516; O2SAT 99
== END 2024-05-01 15:02 | disposition home or self-care (01) ==
LOC: ER 08:07
DX: R45.851 Suicidal ideations (principal); F14.10 Cocaine abuse, uncomplicated; F12.10 Cannabis abuse, uncomplicated; F15.10 Other stimulant abuse, uncomplicated; J45.909 Unspecified asthma, uncomplicated; F32.A Depression, unspecified; I10 Essential (primary) hypertension; Z79.899 Other long term (current) drug therapy; Z91.014 Allergy to mammalian meats; Z91.010 Allergy to peanuts; Z91.013 Allergy to seafood; Z88.8 Allergy status to other drugs, medicaments and biological substances; Z20.822 Contact with and (suspected) exposure to COVID-19
CPT/HCPCS: 80048; 80320; 84703; 85025; 36415 ×2; 99285; 80076; 80305; 81003; 80307; 80329; 87426; Z7610 ×3; G0480

== ENCOUNTER 2024-05-01 16:27 | Emergency (ER) | payer OTHER ==
[~2024-05-01] VITALS: Ht 170.2 cm; Wt 100.0 kg
[2024-05-01 16:41] VITALS: O2SAT 100
[2024-05-01 17:25] LABS: BASOPHILS % 0.2 % (0.0-2.0); HEMATOCRIT. 34.5 % (36.0-48.0); HEMOGLOBIN. 11.7 g/dL (12.0-16.0); MEAN CORPUSCULAR HEMOGLOBIN 33.7 pg (28.0-32.0); MEAN CORPUSCULAR HGB CONC 33.8 g/dL (31.0-37.0); MEAN CORPUSCULAR VOLUME 99.6 fL (81.0-99.0); MEAN PLATELET VOLUME 7.7 fl (7.4-10.4); MONOCYTES % 7.3 % (2.0-8.0); NEUTROPHILS % 74.5 % (40.0-76.0); PLATELET 255 x1000/uL (130-400); RED BLOOD CELL COUNT 3.46 mill/uL (4.2-5.4); RED CELL DISTRIBUTION WIDTH 14.3 % (11.6-14.6); WHITE BLOOD COUNT 8.3 x1000/uL (4.5-11.0)
[2024-05-01 17:30] LABS: CHLORIDE 106 mEq/L (98-107); POTASSIUM 3.9 mEq/L (3.5-5.1); SODIUM 137 mEq/L (136-145)
[2024-05-01 17:31] LABS: CARBON DIOXIDE 28 mEq/L (21-32)
[2024-05-01 17:32] LABS: CALCIUM 9.1 mg/dL (8.7-10.4)
[2024-05-01 17:36] LABS: CREATININE 0.9 mg/dL (0.6-1.0)
[2024-05-01 17:37] LABS: GLUCOSE 93 mg/dL (70-105); UREA NITROGEN BLOOD 12 mg/dL (9-23)
[2024-05-01 17:38] LABS: ETHANOL BLOOD < 10 mg/dL (<10)
[2024-05-02 02:30] VITALS: TEMP 36.94740
[2024-05-02] MEDS: TRAZODONE HCL 50MG TABLET PO ONE (02:40)
[2024-05-02] MEDS: BENZONATATE 100MG CAPSULE PO ONE (10:35)
[2024-05-02 11:45] VITALS: BP 133/86; PULSE 87; RESP 16; O2SAT 99
== END 2024-05-02 11:54 | disposition home or self-care (01) ==
LOC: ER 16:27
DX: R45.851 Suicidal ideations (principal); I10 Essential (primary) hypertension; F20.9 Schizophrenia, unspecified; J45.909 Unspecified asthma, uncomplicated; F41.9 Anxiety disorder, unspecified; F32.9 Major depressive disorder, single episode, unspecified; Z90.89 Acquired absence of other organs; Z79.899 Other long term (current) drug therapy; Z20.822 Contact with and (suspected) exposure to COVID-19
CPT/HCPCS: 36415; 80048; 80320; 85025; 87426; 99283; G0480

== ENCOUNTER 2024-05-17 23:11 | Emergency (ER) | payer MEDICAID ==
[~2024-05-17] VITALS: Ht 172.7 cm; Wt 74.0 kg
[~2024-05-17 23:11] MED LIST changes: +NYST15PO13 TP; -NYST15PO4 TP
[2024-05-18 00:27] LABS: BASOPHILS % 0.2 % (0.0-2.0); EOSINOPHILS % 2.4 % (0.0-5.0); HEMATOCRIT. 32.8 % (36.0-48.0); HEMOGLOBIN. 11.1 g/dL (12.0-16.0); LYMPHOCYTES % 39.1 % (20.0-50.0); MEAN CORPUSCULAR HEMOGLOBIN 32.9 pg (28.0-32.0); MEAN CORPUSCULAR HGB CONC 33.8 g/dL (31.0-37.0); MEAN CORPUSCULAR VOLUME 97.3 fL (81.0-99.0); MEAN PLATELET VOLUME 7.6 fl (7.4-10.4); MONOCYTES % 7.6 % (2.0-8.0); NEUTROPHILS % 50.7 % (40.0-76.0); PLATELET 306 x1000/uL (130-400); RED BLOOD CELL COUNT 3.37 mill/uL (4.2-5.4); RED CELL DISTRIBUTION WIDTH 14.4 % (11.6-14.6); WHITE BLOOD COUNT 7.4 x1000/uL (4.5-11.0)
[2024-05-18 00:33] LABS: CHLORIDE 106 mEq/L (98-107); POTASSIUM 3.4 mEq/L (3.5-5.1); SODIUM 140 mEq/L (136-145)
[2024-05-18 00:34] LABS: CALCIUM 9.2 mg/dL (8.7-10.4); CARBON DIOXIDE 25 mEq/L (21-32)
[2024-05-18 00:39] LABS: CREATININE 0.9 mg/dL (0.6-1.0); GLUCOSE 90 mg/dL (70-105); UREA NITROGEN BLOOD 14 mg/dL (9-23)
[2024-05-18 00:41] LABS: *AMPHETAMINES SCREEN URINE PRESUMPTIVE POSITIVE (NEGATIVE)
[2024-05-18 00:41] LABS: ACETAMINOPHEN < 2 ug/mL (10-30)
[2024-05-18 00:42] LABS: *BARBITURATES SCREEN URINE NEGATIVE (NEGATIVE); *BENZODIAZEPINES SCREEN URINE NEGATIVE (NEGATIVE); *COCAINE SCREEN URINE NEGATIVE (NEGATIVE); CANNABINOID URINE SCREEN PRESUMPTIVE POSITIVE (NEGATIVE); ECSTASY MDMA SCREEN URINE CONF.TEST INDICATED (NEGATIVE); METHADONE URINE SCREEN NEGATIVE (NEGATIVE); OPIATES URINE SCREEN NEGATIVE (NEGATIVE); PHENCYCLIDINE URINE SCREEN NEGATIVE (NEGATIVE)
[2024-05-18 00:57] LABS: HCG SCREEN NEGATIVE
[2024-05-18 01:11] LABS: ETHANOL BLOOD < 10 mg/dL (<10)
[2024-05-18] MEDS: DIPHENHYDRAMINE 25MG CAPSULE PO ONE (01:14)
[2024-05-18] MEDS: TRAZODONE HCL 50MG TABLET PO SCH (01:15)
[2024-05-18] MEDS: DIVALPROEX SODIUM 250MG ER TABLET PO ONE (01:17)
[2024-05-18 04:24] LABS: CLARITY URINE CLEAR (CLEAR); COLOR URINE YELLOW (YELLOW); GLUCOSE URINE NEGATIVE (NEGATIVE); PH URINE 5.5 (4.5-8.0); PROTEIN URINE 1+ (NEGATIVE); SPECIFIC GRAVITY URINE 1.035 (1.005-1.030)
[2024-05-18 04:25] LABS: KETONES URINE NEGATIVE (NEGATIVE); LEUKOCYTE ESTERASE URINE NEGATIVE (NEGATIVE); NITRITE URINE NEGATIVE (NEGATIVE); OCCULT BLOOD URINE 3+ (NEGATIVE)
[2024-05-18 04:54] LABS: SQUAMOUS EPITHELIAL CELL URINE 1+ /lpf (RARE/1+)
[2024-05-18 04:58] LABS: RBC URINE 0-2 /hpf (0-2); WBC URINE 0-2 /hpf (0-2)
[2024-05-18 04:59] LABS: BACTERIA URINE NONE SEEN
[2024-05-18] MEDS: LORAZEPAM 1MG TABLET PO ONE (12:00)
[2024-05-18] MEDS: MIDAZOLAM HCL 2 MG/2 ML VIAL IM ONE (17:30)
[2024-05-18] MEDS: OLANZAPINE 10 MG/VIAL IM ONE (17:30)
[2024-05-18] MEDS ORDERED: TRAZODONE HCL 50MG TABLET PO SCH (21:00)
[2024-05-19] MEDS: MIDAZOLAM HCL 2 MG/2 ML VIAL IM ONE (10:57)
[2024-05-19] MEDS: LORAZEPAM 2MG/ML INJ IM ONE (14:39)
[2024-05-19] MEDS: HALOPERIDOL LACTATE 5MG/ML VIAL IM ONE (14:40)
[2024-05-19] MEDS: DIPHENHYDRAMINE 50MG/ML VIAL IM ONE (14:40)
[2024-05-19 15:45] VITALS: O2SAT 100
[2024-05-19] MEDS: DIVALPROEX SODIUM 250MG DR TABLET PO SCH (21:00)
[2024-05-19] MEDS: OLANZAPINE 5MG TABLET PO SCH (21:00)
[2024-05-19 21:30] VITALS: BP 112/72; PULSE 94; RESP 18; TEMP 36.72516; O2SAT 100
== END 2024-05-19 22:18 ==
LOC: ER 23:11
DX: R45.851 Suicidal ideations (principal); F17.200 Nicotine dependence, unspecified, uncomplicated; F12.10 Cannabis abuse, uncomplicated; F41.9 Anxiety disorder, unspecified; J45.909 Unspecified asthma, uncomplicated; I10 Essential (primary) hypertension; Z20.822 Contact with and (suspected) exposure to COVID-19; Z91.014 Allergy to mammalian meats; Z91.010 Allergy to peanuts; Z91.013 Allergy to seafood; Z88.8 Allergy status to other drugs, medicaments and biological substances; Z90.89 Acquired absence of other organs; Z79.899 Other long term (current) drug therapy; Z98.890 Other specified postprocedural states; Z86.59 Personal history of other mental and behavioral disorders
CPT/HCPCS: 80305; 80048; 81025; 80307; 80329; 80320; 84703; 80165; 85025; 36415; 99291; 87426; 96372 ×2; Q0163; Z7610 ×4; J3490; J2250 ×2; J1200; J1630; J2060; A4663; A4606; G0480

== ENCOUNTER 2024-05-28 21:30 | Emergency (ER) | payer MEDICAID ==
[~2024-05-28] VITALS: Ht 162.6 cm; Wt 91.0 kg
[2024-05-28 21:42] VITALS: BP 121/50; PULSE 101; RESP 18; O2SAT 100
== END 2024-05-29 00:59 | disposition left against medical advice (07) ==
LOC: ER 21:30
DX: R11.2 Nausea with vomiting, unspecified (principal); Z53.21 Procedure and treatment not carried out due to patient leaving prior to being seen by health care provider

== ENCOUNTER 2024-05-29 05:53 | Emergency (ER) | payer MEDICAID ==
[~2024-05-29] VITALS: Ht 165.1 cm; Wt 64.0 kg
[2024-05-29 06:15] VITALS: BP 123/59; PULSE 102; RESP 18; TEMP 99.1; O2SAT 99
== END 2024-05-29 08:49 | disposition left against medical advice (07) ==
LOC: ER 05:53
DX: M79.10 Myalgia, unspecified site (principal); F12.10 Cannabis abuse, uncomplicated; F16.10 Hallucinogen abuse, uncomplicated; F41.9 Anxiety disorder, unspecified; J45.909 Unspecified asthma, uncomplicated; Z91.014 Allergy to mammalian meats; Z91.09 Other allergy status, other than to drugs and biological substances; Z91.010 Allergy to peanuts; Z88.8 Allergy status to other drugs, medicaments and biological substances; Z91.013 Allergy to seafood; Z79.899 Other long term (current) drug therapy; Z86.59 Personal history of other mental and behavioral disorders
CPT/HCPCS: 99283

== ENCOUNTER 2024-07-11 05:37 | Emergency (ER) | payer MEDICAID, OTHER ==
[~2024-07-11] VITALS: Ht 170.2 cm; Wt 73.0 kg
[2024-07-11] MEDS ORDERED: ACETAMINOPHEN 325MG TABLET PO ONE (05:45)
[2024-07-11 05:55] VITALS: BP 112/84; PULSE 86; RESP 16; TEMP 97.7; O2SAT 97
== END 2024-07-11 06:15 | disposition home or self-care (01) ==
LOC: ER 05:52
DX: R51.9 Headache, unspecified (principal); F12.10 Cannabis abuse, uncomplicated; F16.10 Hallucinogen abuse, uncomplicated; F31.9 Bipolar disorder, unspecified; I10 Essential (primary) hypertension; F41.9 Anxiety disorder, unspecified; Z91.014 Allergy to mammalian meats; Z91.010 Allergy to peanuts; Z88.8 Allergy status to other drugs, medicaments and biological substances; Z91.013 Allergy to seafood; Z79.899 Other long term (current) drug therapy; Z86.59 Personal history of other mental and behavioral disorders; Y04.0XXA Assault by unarmed brawl or fight, initial encounter; Y93.89 Activity, other specified; Y92.89 Other specified places as the place of occurrence of the external cause; Y99.8 Other external cause status
CPT/HCPCS: 99283

== ENCOUNTER 2024-07-25 00:09 | Emergency (ER) | payer MEDICAID, OTHER ==
[~2024-07-25] VITALS: Ht 172.7 cm; Wt 93.0 kg
[2024-07-25 00:24] VITALS: O2SAT 98
[2024-07-25 01:48] LABS: CLARITY URINE CLEAR (CLEAR); COLOR URINE DARK YELLOW (YELLOW); GLUCOSE URINE NEGATIVE (NEGATIVE); KETONES URINE TRACE (NEGATIVE); LEUKOCYTE ESTERASE URINE NEGATIVE (NEGATIVE); NITRITE URINE NEGATIVE (NEGATIVE); OCCULT BLOOD URINE NEGATIVE (NEGATIVE); PROTEIN URINE TRACE (NEGATIVE); SPECIFIC GRAVITY URINE 1.032 (1.005-1.030)
[2024-07-25 01:51] LABS: *AMPHETAMINES SCREEN URINE PRESUMPTIVE POSITIVE (NEGATIVE); *BARBITURATES SCREEN URINE NEGATIVE (NEGATIVE); *BENZODIAZEPINES SCREEN URINE NEGATIVE (NEGATIVE)
[2024-07-25 01:52] LABS: *COCAINE SCREEN URINE NEGATIVE (NEGATIVE); CANNABINOID URINE SCREEN PRESUMPTIVE POSITIVE (NEGATIVE); ECSTASY MDMA SCREEN URINE CONF.TEST INDICATED (NEGATIVE); METHADONE URINE SCREEN NEGATIVE (NEGATIVE); OPIATES URINE SCREEN NEGATIVE (NEGATIVE); PHENCYCLIDINE URINE SCREEN NEGATIVE (NEGATIVE)
[2024-07-25 01:56] LABS: CHLORIDE 110 mEq/L (98-107); SODIUM 139 mEq/L (136-145)
[2024-07-25 01:57] LABS: CARBON DIOXIDE 22 mEq/L (21-32)
[2024-07-25 01:58] LABS: CALCIUM 9.1 mg/dL (8.7-10.4)
[2024-07-25 02:02] LABS: CREATININE 0.9 mg/dL (0.6-1.0); GLUCOSE 87 mg/dL (70-105)
[2024-07-25 02:03] LABS: UREA NITROGEN BLOOD 8 mg/dL (9-23)
[2024-07-25 02:04] LABS: ACETAMINOPHEN < 2 ug/mL (10-30)
[2024-07-25 02:06] LABS: HCG SCREEN NEGATIVE
[2024-07-25 02:25] LABS: BASOPHILS % 0.7 % (0.0-2.0); HEMATOCRIT. 44.4 % (36.0-48.0); HEMOGLOBIN. 14.9 g/dL (12.0-16.0); MEAN CORPUSCULAR HEMOGLOBIN 32.8 pg (28.0-32.0); MEAN CORPUSCULAR HGB CONC 33.6 g/dL (31.0-37.0); MEAN CORPUSCULAR VOLUME 97.7 fL (81.0-99.0); MEAN PLATELET VOLUME 8.5 fl (7.4-10.4); NEUTROPHILS % 31.3 % (40.0-76.0); PLATELET 203 x1000/uL (130-400); RED BLOOD CELL COUNT 4.55 mill/uL (4.2-5.4); RED CELL DISTRIBUTION WIDTH 14.3 % (11.6-14.6); WHITE BLOOD COUNT 9.5 x1000/uL (4.5-11.0)
[2024-07-25 02:27] LABS: SQUAMOUS EPITHELIAL CELL URINE 1+ /lpf (RARE/1+)
[2024-07-25 02:28] LABS: BACTERIA URINE NONE SEEN; RBC URINE 0-2 /hpf (0-2); WBC URINE 0-2 /hpf (0-2)
[2024-07-25 02:51] LABS: ETHANOL BLOOD < 10 mg/dL (<10)
[2024-07-25] MEDS: OLANZAPINE 10 MG/VIAL IM ONE (05:45)
[2024-07-25 12:54] VITALS: BP 110/67; PULSE 87; RESP 16; TEMP 36.9; O2SAT 99
== END 2024-07-25 13:54 | disposition home or self-care (01) ==
LOC: ER 00:09
DX: T43.621A Poisoning by amphetamines, accidental (unintentional), initial encounter (principal); F41.9 Anxiety disorder, unspecified; F31.9 Bipolar disorder, unspecified; F12.10 Cannabis abuse, uncomplicated; F16.20 Hallucinogen dependence, uncomplicated; Z20.822 Contact with and (suspected) exposure to COVID-19; Z88.8 Allergy status to other drugs, medicaments and biological substances; Z91.014 Allergy to mammalian meats; Z91.09 Other allergy status, other than to drugs and biological substances; Z91.010 Allergy to peanuts; Z91.013 Allergy to seafood; Z79.899 Other long term (current) drug therapy; Y92.9 Unspecified place or not applicable
CPT/HCPCS: 80305; 80048; 81003; 81025; 80307; 80329; 80320; 84703; 85025; 36415; 96372; 99285; 87426; J3490; Z7610; G0480

== ENCOUNTER 2024-07-30 22:01 | Emergency (ER) | payer MEDICAID ==
[~2024-07-30] VITALS: Ht 175.3 cm; Wt 97.0 kg
[2024-07-30 22:06] VITALS: BP 135/78; PULSE 98; RESP 18; TEMP 36.7; O2SAT 99
[2024-07-30] MEDS ORDERED: ACETAMINOPHEN 325MG TABLET PO ONE (23:00)
== END 2024-07-30 23:13 | disposition left against medical advice (07) ==
LOC: ER 22:01
DX: M79.10 Myalgia, unspecified site (principal); F31.9 Bipolar disorder, unspecified; F20.9 Schizophrenia, unspecified; Z79.899 Other long term (current) drug therapy; Z91.010 Allergy to peanuts; Z91.014 Allergy to mammalian meats; Z91.013 Allergy to seafood; Z91.018 Allergy to other foods; Z88.8 Allergy status to other drugs, medicaments and biological substances
CPT/HCPCS: 99281

== ENCOUNTER 2024-09-21 22:01 | Emergency (ER) | payer MEDICAID ==
[~2024-09-21] VITALS: Ht 172.7 cm; Wt 99.0 kg
[2024-09-21 22:14] VITALS: O2SAT 100
[2024-09-21 22:57] LABS: BASOPHILS % 0.2 % (0.0-2.0); EOSINOPHILS % 3.1 % (0.0-5.0); HEMATOCRIT. 32.9 % (36.0-48.0); HEMOGLOBIN. 10.8 g/dL (12.0-16.0); LYMPHOCYTES % 36.2 % (20.0-50.0); MEAN CORPUSCULAR HEMOGLOBIN 32.1 pg (28.0-32.0); MEAN CORPUSCULAR HGB CONC 32.9 g/dL (31.0-37.0); MEAN CORPUSCULAR VOLUME 97.5 fL (81.0-99.0); MEAN PLATELET VOLUME 7.9 fl (7.4-10.4); MONOCYTES % 7.6 % (2.0-8.0); NEUTROPHILS % 52.9 % (40.0-76.0); PLATELET 238 x1000/uL (130-400); RED BLOOD CELL COUNT 3.38 mill/uL (4.2-5.4); RED CELL DISTRIBUTION WIDTH 14.2 % (11.6-14.6); WHITE BLOOD COUNT 6.1 x1000/uL (4.5-11.0)
[2024-09-21 23:03] LABS: CHLORIDE 107 mEq/L (98-107); POTASSIUM 3.7 mEq/L (3.5-5.1); SODIUM 139 mEq/L (136-145)
[2024-09-21 23:04] LABS: CALCIUM 8.8 mg/dL (8.7-10.4); CARBON DIOXIDE 27 mEq/L (21-32)
[2024-09-21 23:09] LABS: CREATININE 0.8 mg/dL (0.6-1.0); GLUCOSE 98 mg/dL (70-105); UREA NITROGEN BLOOD 14 mg/dL (9-23)
[2024-09-21 23:11] LABS: ACETAMINOPHEN < 2 ug/mL (10-30)
[2024-09-21 23:58] LABS: CLARITY URINE CLEAR (CLEAR); COLOR URINE YELLOW (YELLOW); GLUCOSE URINE NEGATIVE (NEGATIVE); KETONES URINE NEGATIVE (NEGATIVE); LEUKOCYTE ESTERASE URINE NEGATIVE (NEGATIVE); NITRITE URINE NEGATIVE (NEGATIVE); OCCULT BLOOD URINE NEGATIVE (NEGATIVE); PH URINE 5.5 (4.5-8.0); PROTEIN URINE NEGATIVE (NEGATIVE); SPECIFIC GRAVITY URINE 1.015 (1.005-1.030); UROBILINOGEN URINE 0.2 E.U./dL (0.2-1.0)
[2024-09-22 09:22] VITALS: BP 118/68; PULSE 76; RESP 16; TEMP 36.9; O2SAT 100
== END 2024-09-22 09:24 | disposition home or self-care (01) ==
LOC: ER 22:01
DX: R45.851 Suicidal ideations (principal); I10 Essential (primary) hypertension; F25.9 Schizoaffective disorder, unspecified; F31.9 Bipolar disorder, unspecified; F41.9 Anxiety disorder, unspecified; G40.909 Epilepsy, unspecified, not intractable, without status epilepticus; J45.909 Unspecified asthma, uncomplicated; Z59.01 Sheltered homelessness
CPT/HCPCS: 36415; 80048; 80307; 80329; 81003; 85025; 99285

== ENCOUNTER 2024-09-22 19:09 | Emergency (ER) | payer MEDICAID, OTHER ==
[~2024-09-22] VITALS: Ht 172.7 cm; Wt 93.7 kg
[2024-09-22 19:20] VITALS: O2SAT 99
[2024-09-22 19:25] VITALS: BP 138/89; PULSE 85; RESP 18; TEMP 36.9; O2SAT 99
[2024-09-22 20:17] LABS: BASOPHILS % 0.2 % (0.0-2.0); EOSINOPHILS % 0.9 % (0.0-5.0); HEMATOCRIT. 34.7 % (36.0-48.0); HEMOGLOBIN. 11.3 g/dL (12.0-16.0); LYMPHOCYTES % 26.4 % (20.0-50.0); MEAN CORPUSCULAR HEMOGLOBIN 31.8 pg (28.0-32.0); MEAN CORPUSCULAR HGB CONC 32.6 g/dL (31.0-37.0); MEAN CORPUSCULAR VOLUME 97.5 fL (81.0-99.0); MEAN PLATELET VOLUME 8.1 fl (7.4-10.4); MONOCYTES % 11.8 % (2.0-8.0); NEUTROPHILS % 60.7 % (40.0-76.0); PLATELET 225 x1000/uL (130-400); RED BLOOD CELL COUNT 3.56 mill/uL (4.2-5.4); RED CELL DISTRIBUTION WIDTH 14.6 % (11.6-14.6); WHITE BLOOD COUNT 5.2 x1000/uL (4.5-11.0)
[2024-09-22 20:24] LABS: CHLORIDE 109 mEq/L (98-107); POTASSIUM 3.7 mEq/L (3.5-5.1); SODIUM 140 mEq/L (136-145)
[2024-09-22 20:25] LABS: CARBON DIOXIDE 22 mEq/L (21-32)
[2024-09-22 20:30] LABS: CREATININE 0.8 mg/dL (0.6-1.0); GLUCOSE 91 mg/dL (70-105); UREA NITROGEN BLOOD 11 mg/dL (9-23)
[2024-09-22 20:32] LABS: ETHANOL BLOOD < 10 mg/dL (<10)
== END 2024-09-22 23:43 | disposition left against medical advice (07) ==
LOC: ER 19:09
DX: R45.851 Suicidal ideations (principal); F20.9 Schizophrenia, unspecified; F31.9 Bipolar disorder, unspecified; G40.909 Epilepsy, unspecified, not intractable, without status epilepticus; I10 Essential (primary) hypertension; J45.909 Unspecified asthma, uncomplicated; F12.90 Cannabis use, unspecified, uncomplicated; F15.90 Other stimulant use, unspecified, uncomplicated; Z90.89 Acquired absence of other organs; Z79.899 Other long term (current) drug therapy; Z91.010 Allergy to peanuts; Z91.013 Allergy to seafood; Z91.018 Allergy to other foods
CPT/HCPCS: 36415; 80048; 80320; 85025; 99283; 99285; G0480

== ENCOUNTER 2024-10-03 15:40 | Emergency (ER) | payer MEDICAID ==
[~2024-10-03] VITALS: Ht 167.6 cm; Wt 91.0 kg
[2024-10-03 15:47] VITALS: O2SAT 98
[2024-10-03 15:58] VITALS: BP 113/55; PULSE 87; RESP 20; TEMP 36.8; O2SAT 96
== END 2024-10-03 19:34 ==
LOC: ER 15:40
DX: M79.605 Pain in left leg (principal); M79.604 Pain in right leg; Z53.21 Procedure and treatment not carried out due to patient leaving prior to being seen by health care provider; V49.9XXA Car occupant (driver) (passenger) injured in unspecified traffic accident, initial encounter; Y93.89 Activity, other specified; Y92.89 Other specified places as the place of occurrence of the external cause; Y99.8 Other external cause status

== ENCOUNTER 2025-03-05 21:59 | Emergency (ER) | payer MEDICAID ==
[~2025-03-05] VITALS: Ht 175.3 cm; Wt 111.0 kg
[2025-03-05 22:23] VITALS: O2SAT 100
[2025-03-06 00:15] LABS: BASOPHILS % 0.4 % (0.0-2.0); EOSINOPHILS % 1.2 % (0.0-5.0); HEMATOCRIT. 33.7 % (36.0-48.0); HEMOGLOBIN. 11.1 g/dL (12.0-16.0); LYMPHOCYTES % 38.7 % (20.0-50.0); MEAN PLATELET VOLUME 7.3 fl (7.4-10.4); MONOCYTES % 4.6 % (2.0-8.0); NEUTROPHILS % 55.1 % (40.0-76.0); PLATELET 289 x1000/uL (130-400); RED BLOOD CELL COUNT 3.49 mill/uL (4.2-5.4); RED CELL DISTRIBUTION WIDTH 14.0 % (11.6-14.6)
[2025-03-06 00:26] LABS: HCG SCREEN NEGATIVE
[2025-03-06 00:29] LABS: CREATININE 0.9 mg/dL (0.6-1.0); UREA NITROGEN BLOOD 10 mg/dL (9-23)
[2025-03-06 00:30] LABS: ETHANOL BLOOD < 10 mg/dL (<10)
[2025-03-06] MEDS: LORAZEPAM 1MG TABLET PO ONE (00:30)
[2025-03-06 00:31] LABS: ASPARTATE AMINOTRANSFERASE 19 IU/L (<34); BILIRUBIN DIRECT 0.1 mg/dL (<=3.0); BILIRUBIN TOTAL 0.4 mg/dL (0.1-1.0)
[2025-03-06 00:32] LABS: PROTEIN TOTAL 7.5 g/dL (6.0-8.3)
[2025-03-06 01:24] LABS: CLARITY URINE CLEAR (CLEAR); COLOR URINE YELLOW (YELLOW); GLUCOSE URINE NEGATIVE (NEGATIVE); KETONES URINE NEGATIVE (NEGATIVE); LEUKOCYTE ESTERASE URINE NEGATIVE (NEGATIVE); NITRITE URINE NEGATIVE (NEGATIVE); OCCULT BLOOD URINE NEGATIVE (NEGATIVE); PH URINE 5.5 (4.5-8.0); PROTEIN URINE NEGATIVE (NEGATIVE); SPECIFIC GRAVITY URINE 1.029 (1.005-1.030); UROBILINOGEN URINE 1.0 E.U./dL (0.2-1.0)
[2025-03-06 01:54] LABS: *AMPHETAMINES SCREEN URINE PRESUMPTIVE POSITIVE (NEGATIVE); *BARBITURATES SCREEN URINE NEGATIVE (NEGATIVE); *BENZODIAZEPINES SCREEN URINE NEGATIVE (NEGATIVE); *COCAINE SCREEN URINE NEGATIVE (NEGATIVE); CANNABINOID URINE SCREEN PRESUMPTIVE POSITIVE (NEGATIVE); ECSTASY MDMA SCREEN URINE CONF.TEST INDICATED (NEGATIVE); METHADONE URINE SCREEN NEGATIVE (NEGATIVE); OPIATES URINE SCREEN NEGATIVE (NEGATIVE); PHENCYCLIDINE URINE SCREEN NEGATIVE (NEGATIVE)
[2025-03-06] MEDS: DIPHENHYDRAMINE 50MG CAPSULE PO ONE (02:39)
[2025-03-06 09:02] VITALS: BP 119/89; PULSE 80; RESP 18; TEMP 36.6; O2SAT 100
== END 2025-03-06 09:25 | disposition still patient (30) ==
LOC: ER 21:59
DX: R45.851 Suicidal ideations (principal); F41.9 Anxiety disorder, unspecified; F31.9 Bipolar disorder, unspecified; F20.9 Schizophrenia, unspecified; J45.909 Unspecified asthma, uncomplicated; Z91.010 Allergy to peanuts; Z91.013 Allergy to seafood; Z20.822 Contact with and (suspected) exposure to COVID-19; Z79.899 Other long term (current) drug therapy
CPT/HCPCS: 80076; 80048; 80307; 80329; 80320; 84703; 85025; 36415 ×2; 99285; 80305; 81003; 80165; 87426; Q0163; G0480

== ENCOUNTER 2025-03-12 00:42 | Emergency (ER) | payer MEDICAID ==
[~2025-03-12] VITALS: Ht 175.3 cm; Wt 92.0 kg
[2025-03-12 00:55] VITALS: O2SAT 99
[2025-03-12 01:14] VITALS: BP 121/88; PULSE 92; RESP 18; TEMP 36.9; O2SAT 99
== END 2025-03-12 02:47 | disposition left against medical advice (07) ==
LOC: ER 00:42
DX: Z00.00 Encounter for general adult medical examination without abnormal findings (principal); Z53.21 Procedure and treatment not carried out due to patient leaving prior to being seen by health care provider

== ENCOUNTER 2025-03-31 02:47 | Emergency (ER) | payer MEDICAID ==
[~2025-03-31] VITALS: Ht 172.7 cm; Wt 104.0 kg
[2025-03-31 02:52] VITALS: O2SAT 99
[2025-03-31 03:47] LABS: BASOPHILS % 0.2 % (0.0-2.0); EOSINOPHILS % 2.7 % (0.0-5.0); HEMATOCRIT. 35.3 % (36.0-48.0); HEMOGLOBIN. 11.8 g/dL (12.0-16.0); LYMPHOCYTES % 29.0 % (20.0-50.0); MEAN PLATELET VOLUME 7.3 fl (7.4-10.4); MONOCYTES % 8.6 % (2.0-8.0); NEUTROPHILS % 59.5 % (40.0-76.0); PLATELET 372 x1000/uL (130-400); RED BLOOD CELL COUNT 3.68 mill/uL (4.2-5.4); RED CELL DISTRIBUTION WIDTH 13.8 % (11.6-14.6)
[2025-03-31 04:04] LABS: CREATININE 1.2 mg/dL (0.6-1.0); UREA NITROGEN BLOOD 21 mg/dL (9-23)
[2025-03-31 04:15] LABS: CLARITY URINE CLOUDY (CLEAR); COLOR URINE DARK YELLOW (YELLOW); GLUCOSE URINE NEGATIVE (NEGATIVE); KETONES URINE TRACE (NEGATIVE); LEUKOCYTE ESTERASE URINE NEGATIVE (NEGATIVE); NITRITE URINE NEGATIVE (NEGATIVE); OCCULT BLOOD URINE NEGATIVE (NEGATIVE); PH URINE 5.5 (4.5-8.0); PROTEIN URINE 2+ (NEGATIVE); SPECIFIC GRAVITY URINE 1.036 (1.005-1.030); UROBILINOGEN URINE 1.0 E.U./dL (0.2-1.0)
[2025-03-31 04:25] LABS: HCG SCREEN NEGATIVE
[2025-03-31 04:34] LABS: *AMPHETAMINES SCREEN URINE PRESUMPTIVE POSITIVE (NEGATIVE); *BARBITURATES SCREEN URINE NEGATIVE (NEGATIVE); *BENZODIAZEPINES SCREEN URINE PRESUMPTIVE POSITIVE (NEGATIVE); *COCAINE SCREEN URINE NEGATIVE (NEGATIVE); CANNABINOID URINE SCREEN PRESUMPTIVE POSITIVE (NEGATIVE); ECSTASY MDMA SCREEN URINE CONF.TEST INDICATED (NEGATIVE); METHADONE URINE SCREEN NEGATIVE (NEGATIVE); OPIATES URINE SCREEN NEGATIVE (NEGATIVE); PHENCYCLIDINE URINE SCREEN NEGATIVE (NEGATIVE)
[2025-03-31 04:38] LABS: SQUAMOUS EPITHELIAL CELL URINE 1+ /lpf (RARE/1+)
[2025-03-31 04:42] LABS: RBC URINE 0-2 /hpf (0-2); WBC URINE 0-2 /hpf (0-2)
[2025-03-31 04:43] LABS: BACTERIA URINE NONE SEEN
[2025-03-31 04:44] LABS: AMORPHOUS SEDIMENT URINE 1+ /lpf
[2025-03-31] MEDS: POTASSIUM CHLORIDE 20MEQ TABLET SR PO ONE (05:18)
[2025-03-31] MEDS: DIPHENHYDRAMINE 50MG/ML VIAL IM PRN (05:19)
[2025-03-31] MEDS: KETOROLAC 30MG/ML VIAL IM ONE (05:19)
[2025-03-31] MEDS: LORAZEPAM 2MG/ML UD SYRINGE IM NR (05:19)
[2025-03-31 06:54] VITALS: BP 92/50; PULSE 89; RESP 18; TEMP 36.9; O2SAT 100
== END 2025-03-31 11:50 | disposition short-term general hospital (02) ==
LOC: ER 02:47
DX: F25.9 Schizoaffective disorder, unspecified (principal); F19.10 Other psychoactive substance abuse, uncomplicated; R51.9 Headache, unspecified; E11.9 Type 2 diabetes mellitus without complications; F12.10 Cannabis abuse, uncomplicated; F17.200 Nicotine dependence, unspecified, uncomplicated; F31.9 Bipolar disorder, unspecified; F41.9 Anxiety disorder, unspecified; G40.909 Epilepsy, unspecified, not intractable, without status epilepticus; J45.909 Unspecified asthma, uncomplicated; Z91.013 Allergy to seafood; Z91.010 Allergy to peanuts; Z88.8 Allergy status to other drugs, medicaments and biological substances; Z20.822 Contact with and (suspected) exposure to COVID-19
CPT/HCPCS: 80305; 80048; 81003; 80307; 80329; 80320; 84703; 85025; 36415; 96372; 99285; 87426; J1200; J1885; J2060; Z7610; G0480

== ENCOUNTER 2025-04-14 12:32 | Emergency (ER) | payer MEDICAID ==
[~2025-04-14] VITALS: Ht 172.7 cm; Wt 102.0 kg
[2025-04-14 12:37] VITALS: O2SAT 99
[2025-04-14 13:09] LABS: BASOPHILS % 0.3 % (0.0-2.0); EOSINOPHILS % 3.2 % (0.0-5.0); HEMATOCRIT. 37.3 % (36.0-48.0); HEMOGLOBIN. 12.4 g/dL (12.0-16.0); LYMPHOCYTES % 32.0 % (20.0-50.0); MEAN PLATELET VOLUME 7.7 fl (7.4-10.4); MONOCYTES % 6.7 % (2.0-8.0); NEUTROPHILS % 57.8 % (40.0-76.0); PLATELET 273 x1000/uL (130-400); RED BLOOD CELL COUNT 3.91 mill/uL (4.2-5.4); RED CELL DISTRIBUTION WIDTH 14.5 % (11.6-14.6)
[2025-04-14 13:24] LABS: CREATININE 0.9 mg/dL (0.6-1.0); UREA NITROGEN BLOOD 8 mg/dL (9-23)
[2025-04-14 13:38] LABS: CLARITY URINE CLOUDY (CLEAR); COLOR URINE DARK YELLOW (YELLOW); GLUCOSE URINE NEGATIVE (NEGATIVE); KETONES URINE TRACE (NEGATIVE); LEUKOCYTE ESTERASE URINE 1+ (NEGATIVE); NITRITE URINE NEGATIVE (NEGATIVE); OCCULT BLOOD URINE NEGATIVE (NEGATIVE); PH URINE 6.0 (4.5-8.0); PROTEIN URINE 3+ (NEGATIVE); SPECIFIC GRAVITY URINE 1.037 (1.005-1.030); UROBILINOGEN URINE 2.0 E.U./dL (0.2-1.0)
[2025-04-14 13:55] LABS: *AMPHETAMINES SCREEN URINE PRESUMPTIVE POSITIVE (NEGATIVE); *BARBITURATES SCREEN URINE NEGATIVE (NEGATIVE); *BENZODIAZEPINES SCREEN URINE NEGATIVE (NEGATIVE); *COCAINE SCREEN URINE NEGATIVE (NEGATIVE); METHADONE URINE SCREEN NEGATIVE (NEGATIVE)
[2025-04-14 13:56] LABS: CANNABINOID URINE SCREEN PRESUMPTIVE POSITIVE (NEGATIVE); ECSTASY MDMA SCREEN URINE CONF.TEST INDICATED (NEGATIVE); OPIATES URINE SCREEN NEGATIVE (NEGATIVE); PHENCYCLIDINE URINE SCREEN NEGATIVE (NEGATIVE)
[2025-04-14 14:09] LABS: SQUAMOUS EPITHELIAL CELL URINE 3+ /lpf (RARE/1+)
[2025-04-14 14:10] LABS: BACTERIA URINE 3+; MUCUS URINE 1+ /lpf (< = 2+)
[2025-04-14 14:11] LABS: RBC URINE NONE SEEN /hpf (0-2)
[2025-04-14] MEDS: DIVALPROEX SODIUM 250MG ER TABLET PO ONE (16:49)
[2025-04-14] MEDS: IBUPROFEN 600MG TABLET PO ONE (16:49)
[2025-04-14 17:39] LABS: HCG SCREEN NEGATIVE
[2025-04-14] MEDS: LORAZEPAM 2MG/ML UD SYRINGE ONE (18:01)
[2025-04-14] MEDS: NITROFURANTOIN 100MG M/M CAPSULE PO SCH (18:02)
[2025-04-14] MEDS: DIPHENHYDRAMINE 50MG/ML VIAL IM ONE (18:02)
[2025-04-14 19:47] VITALS: BP 100/85; PULSE 100; RESP 20; TEMP 36.7; O2SAT 98
== END 2025-04-14 22:14 ==
LOC: ER 12:32
DX: F29 Unspecified psychosis not due to a substance or known physiological condition (principal); E11.9 Type 2 diabetes mellitus without complications; F20.9 Schizophrenia, unspecified; F31.9 Bipolar disorder, unspecified; J45.909 Unspecified asthma, uncomplicated; Z91.010 Allergy to peanuts; Z91.013 Allergy to seafood
CPT/HCPCS: 80305; 80048; 81003; 80307; 80329; 80320; 84703; 85025; 36415; 96372; 99285; Z7610 ×2; J1200; J2060; A4606; G0480

== ENCOUNTER 2025-04-29 19:16 | Emergency (ER) | payer MEDICAID ==
[~2025-04-29] VITALS: Ht 175.3 cm; Wt 103.0 kg
[2025-04-29 19:35] VITALS: O2SAT 100
[2025-04-29 20:20] LABS: *AMPHETAMINES SCREEN URINE PRESUMPTIVE POSITIVE (NEGATIVE); *BARBITURATES SCREEN URINE NEGATIVE (NEGATIVE); *BENZODIAZEPINES SCREEN URINE PRESUMPTIVE POSITIVE (NEGATIVE); *COCAINE SCREEN URINE NEGATIVE (NEGATIVE); CANNABINOID URINE SCREEN PRESUMPTIVE POSITIVE (NEGATIVE); METHADONE URINE SCREEN NEGATIVE (NEGATIVE); OPIATES URINE SCREEN NEGATIVE (NEGATIVE); PHENCYCLIDINE URINE SCREEN NEGATIVE (NEGATIVE)
[2025-04-29 20:21] LABS: ECSTASY MDMA SCREEN URINE CONF.TEST INDICATED (NEGATIVE)
[2025-04-29 20:39] LABS: BASOPHILS % 0.2 % (0.0-2.0); EOSINOPHILS % 5.9 % (0.0-5.0); HEMATOCRIT. 27.7 % (36.0-48.0); HEMOGLOBIN. 9.0 g/dL (12.0-16.0); LYMPHOCYTES % 30.7 % (20.0-50.0); MEAN PLATELET VOLUME 7.6 fl (7.4-10.4); MONOCYTES % 7.3 % (2.0-8.0); NEUTROPHILS % 55.9 % (40.0-76.0); PLATELET 261 x1000/uL (130-400); RED BLOOD CELL COUNT 2.82 mill/uL (4.2-5.4); RED CELL DISTRIBUTION WIDTH 14.9 % (11.6-14.6)
[2025-04-29 20:53] LABS: CREATININE 0.7 mg/dL (0.6-1.0); UREA NITROGEN BLOOD 17 mg/dL (9-23)
[2025-04-29 21:02] LABS: HCG SCREEN NEGATIVE
[2025-04-29 21:34] LABS: CLARITY URINE CLEAR (CLEAR); COLOR URINE YELLOW (YELLOW); GLUCOSE URINE NEGATIVE (NEGATIVE); KETONES URINE NEGATIVE (NEGATIVE); LEUKOCYTE ESTERASE URINE NEGATIVE (NEGATIVE); NITRITE URINE NEGATIVE (NEGATIVE); OCCULT BLOOD URINE NEGATIVE (NEGATIVE); PH URINE 5.5 (4.5-8.0); PROTEIN URINE NEGATIVE (NEGATIVE); SPECIFIC GRAVITY URINE 1.030 (1.005-1.030); UROBILINOGEN URINE 0.2 E.U./dL (0.2-1.0)
[2025-04-29] MEDS: SODIUM CHLORIDE 0.9% 1,000 ML IV ONE (21:55)
[2025-04-29 23:24] LABS: ASPARTATE AMINOTRANSFERASE 27 IU/L (<34)
[2025-04-29 23:25] LABS: BILIRUBIN DIRECT < 0.1 mg/dL (<=3.0); BILIRUBIN TOTAL 0.2 mg/dL (0.1-1.0); PROTEIN TOTAL 6.4 g/dL (6.0-8.3)
[2025-04-30 09:21] VITALS: BP 105/73; PULSE 78; RESP 18; TEMP 36.7; O2SAT 100
== END 2025-04-30 16:56 ==
LOC: ER 19:16
DX: R45.851 Suicidal ideations (principal); E11.9 Type 2 diabetes mellitus without complications; F20.9 Schizophrenia, unspecified; F31.9 Bipolar disorder, unspecified; J45.909 Unspecified asthma, uncomplicated; Z90.89 Acquired absence of other organs; Z20.822 Contact with and (suspected) exposure to COVID-19; Z59.00 Homelessness unspecified; Z79.899 Other long term (current) drug therapy; Z91.010 Allergy to peanuts; Z91.013 Allergy to seafood
CPT/HCPCS: 80076; 80305; 80048; 81003; 80307; 80329; 80320; 84703; 85025; 36415; 71045; 96360; 99285; 87426; 82962; J7030; Z7610 ×5; G0480

== ENCOUNTER 2025-05-08 01:04 | Emergency (ER) | payer MEDICAID ==
[~2025-05-08] VITALS: Ht 172.7 cm; Wt 105.0 kg
[2025-05-08 01:23] VITALS: O2SAT 98
[2025-05-08 02:16] LABS: BASOPHILS % 0.2 % (0.0-2.0); EOSINOPHILS % 1.3 % (0.0-5.0); HEMATOCRIT. 32.6 % (36.0-48.0); HEMOGLOBIN. 10.8 g/dL (12.0-16.0); LYMPHOCYTES % 28.6 % (20.0-50.0); MEAN PLATELET VOLUME 7.3 fl (7.4-10.4); MONOCYTES % 9.9 % (2.0-8.0); NEUTROPHILS % 60.0 % (40.0-76.0); PLATELET 286 x1000/uL (130-400); RED BLOOD CELL COUNT 3.45 mill/uL (4.2-5.4); RED CELL DISTRIBUTION WIDTH 14.2 % (11.6-14.6)
[2025-05-08 02:21] LABS: CLARITY URINE CLOUDY (CLEAR); COLOR URINE DARK YELLOW (YELLOW); GLUCOSE URINE NEGATIVE (NEGATIVE); KETONES URINE TRACE (NEGATIVE); LEUKOCYTE ESTERASE URINE NEGATIVE (NEGATIVE); NITRITE URINE NEGATIVE (NEGATIVE); OCCULT BLOOD URINE TRACE (NEGATIVE); PH URINE 5.0 (4.5-8.0); PROTEIN URINE 1+ (NEGATIVE); SPECIFIC GRAVITY URINE 1.037 (1.005-1.030); UROBILINOGEN URINE 1.0 E.U./dL (0.2-1.0)
[2025-05-08 02:33] LABS: CREATININE 1.0 mg/dL (0.6-1.0); HCG SCREEN NEGATIVE; UREA NITROGEN BLOOD 18 mg/dL (9-23)
[2025-05-08 02:54] LABS: *AMPHETAMINES SCREEN URINE PRESUMPTIVE POSITIVE (NEGATIVE); *BARBITURATES SCREEN URINE NEGATIVE (NEGATIVE); *BENZODIAZEPINES SCREEN URINE NEGATIVE (NEGATIVE); *COCAINE SCREEN URINE NEGATIVE (NEGATIVE); CANNABINOID URINE SCREEN PRESUMPTIVE POSITIVE (NEGATIVE); ECSTASY MDMA SCREEN URINE CONF.TEST INDICATED (NEGATIVE); METHADONE URINE SCREEN NEGATIVE (NEGATIVE); OPIATES URINE SCREEN NEGATIVE (NEGATIVE); PHENCYCLIDINE URINE SCREEN NEGATIVE (NEGATIVE)
[2025-05-08 03:42] LABS: WBC URINE 0-2 /hpf (0-2)
[2025-05-08 03:45] LABS: RBC URINE 0-2 /hpf (0-2); SQUAMOUS EPITHELIAL CELL URINE FEW /lpf (RARE/1+)
[2025-05-08 03:46] LABS: BACTERIA URINE NONE SEEN
[2025-05-08 03:47] LABS: AMORPHOUS SEDIMENT URINE 1+ /lpf
[2025-05-08 07:15] VITALS: BP 102/47; PULSE 91; RESP 18; TEMP 36.8; O2SAT 98
== END 2025-05-08 07:25 ==
LOC: ER 01:04
DX: R45.851 Suicidal ideations (principal); F12.90 Cannabis use, unspecified, uncomplicated; Z91.010 Allergy to peanuts; Z91.013 Allergy to seafood; Z20.822 Contact with and (suspected) exposure to COVID-19; Z79.899 Other long term (current) drug therapy
CPT/HCPCS: 36415; 80048; 80305; 80307; 80320; 80329; 81003; 84703; 85025; 87426; 99285; G0480

== ENCOUNTER 2025-05-14 23:21 | Emergency (ER) | payer MEDICAID ==
[~2025-05-14] VITALS: Ht 172.7 cm; Wt 89.0 kg
[2025-05-14 23:44] VITALS: O2SAT 99
[2025-05-15 02:37] LABS: BASOPHILS % 0.3 % (0.0-2.0); EOSINOPHILS % 1.1 % (0.0-5.0); HEMATOCRIT. 35.5 % (36.0-48.0); HEMOGLOBIN. 11.7 g/dL (12.0-16.0); LYMPHOCYTES % 31.3 % (20.0-50.0); MEAN PLATELET VOLUME 9.0 fl (7.4-10.4); MONOCYTES % 3.9 % (2.0-8.0); NEUTROPHILS % 63.4 % (40.0-76.0); PLATELET 244 x1000/uL (130-400); RED BLOOD CELL COUNT 3.70 mill/uL (4.2-5.4); RED CELL DISTRIBUTION WIDTH 14.5 % (11.6-14.6)
[2025-05-15 02:47] LABS: HCG SCREEN NEGATIVE
[2025-05-15 02:52] LABS: CREATININE 0.8 mg/dL (0.6-1.0); UREA NITROGEN BLOOD 12 mg/dL (9-23)
[2025-05-15 02:53] LABS: ETHANOL BLOOD < 10 mg/dL (<10)
[2025-05-15 02:54] LABS: *AMPHETAMINES SCREEN URINE PRESUMPTIVE POSITIVE (NEGATIVE); *BARBITURATES SCREEN URINE NEGATIVE (NEGATIVE); *BENZODIAZEPINES SCREEN URINE NEGATIVE (NEGATIVE)
[2025-05-15 02:55] LABS: *COCAINE SCREEN URINE PRESUMPTIVE POSITIVE (NEGATIVE); CANNABINOID URINE SCREEN PRESUMPTIVE POSITIVE (NEGATIVE); ECSTASY MDMA SCREEN URINE CONF.TEST INDICATED (NEGATIVE); METHADONE URINE SCREEN NEGATIVE (NEGATIVE); OPIATES URINE SCREEN NEGATIVE (NEGATIVE); PHENCYCLIDINE URINE SCREEN NEGATIVE (NEGATIVE)
[2025-05-15] MEDS: DIVALPROEX SODIUM 250MG DR TABLET PO SCH (22:10)
[2025-05-15] MEDS: OLANZAPINE 10MG TABLET PO SCH (22:10)
[2025-05-16 08:00] VITALS: BP 121/73; PULSE 77; RESP 18; TEMP 36.7; O2SAT 100
== END 2025-05-16 11:20 | disposition home or self-care (01) ==
LOC: ER 23:48
DX: R45.851 Suicidal ideations (principal); F41.9 Anxiety disorder, unspecified; F32.A Depression, unspecified; F25.0 Schizoaffective disorder, bipolar type; F12.90 Cannabis use, unspecified, uncomplicated; F15.90 Other stimulant use, unspecified, uncomplicated; Z79.899 Other long term (current) drug therapy; Z98.890 Other specified postprocedural states; Z20.822 Contact with and (suspected) exposure to COVID-19; Z91.010 Allergy to peanuts; Z91.013 Allergy to seafood
CPT/HCPCS: 36415; 80048; 80305; 80307; 80320; 80329; 84703; 85025; 87426; 99285; G0480

== ENCOUNTER 2025-05-29 04:41 | Emergency (ER) | payer MEDICAID ==
[~2025-05-29] VITALS: Ht 172.7 cm; Wt 112.8 kg
[2025-05-29 05:02] VITALS: O2SAT 100
[2025-05-29 05:50] LABS: BASOPHILS % 0.2 % (0.0-2.0); EOSINOPHILS % 2.0 % (0.0-5.0); HEMATOCRIT. 32.5 % (36.0-48.0); HEMOGLOBIN. 10.9 g/dL (12.0-16.0); LYMPHOCYTES % 30.1 % (20.0-50.0); MEAN PLATELET VOLUME 7.6 fl (7.4-10.4); MONOCYTES % 7.6 % (2.0-8.0); NEUTROPHILS % 60.1 % (40.0-76.0); PLATELET 310 x1000/uL (130-400); RED BLOOD CELL COUNT 3.44 mill/uL (4.2-5.4); RED CELL DISTRIBUTION WIDTH 14.5 % (11.6-14.6)
[2025-05-29 05:59] LABS: CLARITY URINE CLOUDY (CLEAR); COLOR URINE DARK YELLOW (YELLOW); GLUCOSE URINE NEGATIVE (NEGATIVE); KETONES URINE TRACE (NEGATIVE); LEUKOCYTE ESTERASE URINE 1+ (NEGATIVE); NITRITE URINE NEGATIVE (NEGATIVE); OCCULT BLOOD URINE NEGATIVE (NEGATIVE); PH URINE 6.0 (4.5-8.0); PROTEIN URINE TRACE (NEGATIVE); SPECIFIC GRAVITY URINE 1.024 (1.005-1.030); UROBILINOGEN URINE 1.0 E.U./dL (0.2-1.0)
[2025-05-29 06:01] LABS: CREATININE 1.0 mg/dL (0.6-1.0)
[2025-05-29 06:02] LABS: ETHANOL BLOOD < 10 mg/dL (<10); PROTEIN TOTAL 7.2 g/dL (6.0-8.3); UREA NITROGEN BLOOD 8 mg/dL (9-23)
[2025-05-29 06:03] LABS: ASPARTATE AMINOTRANSFERASE 23 IU/L (<34)
[2025-05-29 06:04] LABS: BILIRUBIN DIRECT 0.2 mg/dL (<=3.0); BILIRUBIN TOTAL 0.5 mg/dL (0.1-1.0)
[2025-05-29 06:23] LABS: HCG SCREEN NEGATIVE
[2025-05-29 06:28] LABS: *AMPHETAMINES SCREEN URINE PRESUMPTIVE POSITIVE (NEGATIVE); *BENZODIAZEPINES SCREEN URINE NEGATIVE (NEGATIVE)
[2025-05-29 06:29] LABS: *BARBITURATES SCREEN URINE NEGATIVE (NEGATIVE); *COCAINE SCREEN URINE NEGATIVE (NEGATIVE); CANNABINOID URINE SCREEN PRESUMPTIVE POSITIVE (NEGATIVE); ECSTASY MDMA SCREEN URINE CONF.TEST INDICATED (NEGATIVE); METHADONE URINE SCREEN NEGATIVE (NEGATIVE); OPIATES URINE SCREEN NEGATIVE (NEGATIVE); PHENCYCLIDINE URINE SCREEN NEGATIVE (NEGATIVE)
[2025-05-29 06:48] LABS: SQUAMOUS EPITHELIAL CELL URINE 2+ /lpf (RARE/1+)
[2025-05-29 06:49] LABS: RBC URINE 0-2 /hpf (0-2); WBC URINE 0-2 /hpf (0-2)
[2025-05-29 06:50] LABS: BACTERIA URINE TRACE
[2025-05-29 12:10] VITALS: BP 129/68; PULSE 92; RESP 18; TEMP 36.7; O2SAT 100
== END 2025-05-29 12:23 | disposition home or self-care (01) ==
LOC: ER 04:41
DX: R45.851 Suicidal ideations (principal); F41.9 Anxiety disorder, unspecified; Z91.010 Allergy to peanuts; Z91.013 Allergy to seafood; Z20.822 Contact with and (suspected) exposure to COVID-19; Z79.899 Other long term (current) drug therapy
CPT/HCPCS: 80076; 80305; 80048; 81003; 80320; 84703; 85025; 36415; 99285; 87426; Z7610; G0480

== ENCOUNTER 2025-06-18 12:45 | Emergency (ER) | payer MEDICAID ==
[~2025-06-18] VITALS: Ht 170.2 cm; Wt 90.0 kg
[2025-06-18 12:51] VITALS: O2SAT 100
[2025-06-18 13:59] LABS: CREATININE 0.9 mg/dL (0.6-1.0); UREA NITROGEN BLOOD 10 mg/dL (9-23)
[2025-06-18 14:00] LABS: ETHANOL BLOOD < 10 mg/dL (<10); PROTEIN TOTAL 6.5 g/dL (6.0-8.3); TROPONIN I HIGH SENSITIVITY < 4 ng/L (3.0-34)
[2025-06-18 14:01] LABS: ASPARTATE AMINOTRANSFERASE 16 IU/L (<34); BILIRUBIN DIRECT < 0.1 mg/dL (<=3.0); BILIRUBIN TOTAL 0.2 mg/dL (0.1-1.0)
[2025-06-18] MEDS: SODIUM CHLORIDE 0.9% 1,000 ML IV ONE ×2 (14:15→16:01)
[2025-06-18 14:34] LABS: HCG SCREEN NEGATIVE
[2025-06-18 15:14] LABS: *AMPHETAMINES SCREEN URINE PRESUMPTIVE POSITIVE (NEGATIVE); *BARBITURATES SCREEN URINE NEGATIVE (NEGATIVE); *BENZODIAZEPINES SCREEN URINE NEGATIVE (NEGATIVE); *COCAINE SCREEN URINE NEGATIVE (NEGATIVE); CANNABINOID URINE SCREEN PRESUMPTIVE POSITIVE (NEGATIVE); ECSTASY MDMA SCREEN URINE NEGATIVE (NEGATIVE); METHADONE URINE SCREEN NEGATIVE (NEGATIVE); OPIATES URINE SCREEN NEGATIVE (NEGATIVE); PHENCYCLIDINE URINE SCREEN NEGATIVE (NEGATIVE)
[2025-06-18 15:42] LABS: BASOPHILS % 0.4 % (0.0-2.0); EOSINOPHILS % 3.0 % (0.0-5.0); HEMATOCRIT. 31.0 % (36.0-48.0); HEMOGLOBIN. 10.6 g/dL (12.0-16.0); LYMPHOCYTES % 30.6 % (20.0-50.0); MEAN PLATELET VOLUME 7.5 fl (7.4-10.4); MONOCYTES % 4.3 % (2.0-8.0); NEUTROPHILS % 61.7 % (40.0-76.0); PLATELET 308 x1000/uL (130-400); RED BLOOD CELL COUNT 3.23 mill/uL (4.2-5.4); RED CELL DISTRIBUTION WIDTH 14.7 % (11.6-14.6)
[2025-06-18 16:16] VITALS: BP 121/65; PULSE 79; RESP 16; TEMP 36.9; O2SAT 98
== END 2025-06-18 16:25 | disposition left against medical advice (07) ==
LOC: ER 13:05 → EDBEDREQTM 16:00 → EDBEDREQ 16:00 → ER 16:25 → CMPBEDREQ 06-19 07:58
DX: I95.9 Hypotension, unspecified (principal); R55 Syncope and collapse; F15.10 Other stimulant abuse, uncomplicated; F12.10 Cannabis abuse, uncomplicated; F17.200 Nicotine dependence, unspecified, uncomplicated; F20.9 Schizophrenia, unspecified; J45.909 Unspecified asthma, uncomplicated; Z53.29 Procedure and treatment not carried out because of patient's decision for other reasons; Z55.6 Problems related to health literacy; Z91.010 Allergy to peanuts; Z91.013 Allergy to seafood; Z79.899 Other long term (current) drug therapy
CPT/HCPCS: 80076; 80305; 80048; 80320; 84703; 83690; 85025; 84484; 36415; 71045; 93005; 99291; J7030; G0480